=== PATIENT | female | born 1985 | race Caucasian/White ===

== ENCOUNTER 2021-01-12 10:19 | Outpatient (REF) | payer MEDICAID, SELFPAY ==
--- NOTE | 2021-01-12 10:42 | MHC.AU.P13 ---
Hearing Instrument Follow-Up- Binaural Date of Visit: 01/12/21 Right Ear: Tow Truck Operator: Phonak Model: ClickDeliveryEO [id number] Serial Number: [id number] Repair Warranty: Loss and Damage Warranty: Battery Size: 312 Color: BLACK Director Of Sustainability: 2xS Type of Dome: SMALL CLOSED Type of Wax Guard: CERUSTOP Left Ear: Tow Truck Operator: Phonak Model: ClickDeliveryEO V50-312 Serial Number: [id number] RepairWarranty: Loss and Damage Warranty: Battery Size: 312 Color: BLACK Director Of Sustainability: 2xS Type of Dome: SMALL CLOSED Type of Wax Guard: CERUSTOP Follow-Up Summary: BATES Maint - Hearing aids cleaned, wax guards and small closed domes replaced, both batteries replaced, now amplifying clearly. Patient was having trouble inserting and saw AuD. Nicky Bullock reviewed insertion and felt it was due to length of patient's nails that she could not get in. Patient was dispensed 42 batteries Recommendations: Recommendations: Hearing instrument follow-up or maintenance as needed. Signature: Provider: CARLOS A Mirza-HIS
== END 2021-01-12 10:20 | disposition home or self-care (01) ==
LOC: HO.HAP 10:19
PROVIDERS: Visit Provider Family Medicine
DX: Z46.1 Encounter for fitting and adjustment of hearing aid (principal)
CPT/HCPCS: 99499; V5266

== ENCOUNTER → 2022-09-30 13:01 | Outpatient (BNV) | payer MEDICAID, SELFPAY | PROVIDERS: PCP Family Medicine; Visit Provider Internal Medicine Medical Oncology | DX: D72.829 Elevated white blood cell count, unspecified (principal) | CPT/HCPCS: 99204; 99213 ==

== ENCOUNTER → 2022-11-16 09:14 | Outpatient (BNVA) | payer MEDICAID, SELFPAY | PROVIDERS: PCP Family Medicine; Visit Provider Surgery Vascular Surgery | DX: I83.11 Varicose veins of right lower extremity with inflammation (principal) | CPT/HCPCS: 99202 ==

== ENCOUNTER 2022-12-10 08:11 | Outpatient (REF) | payer MEDICAID, SELFPAY ==
--- NOTE | ~2022-12-10 | US_ITS ---
EXAMINATION: US LOWER EXTREMITY VENOUS (REFLUX EXAM), BILATERAL CLINICAL INDICATION: Chronic venous insufficiency with lower extremity varicose veins and inflammation COMPARISON: None. TECHNIQUE: Color flow triplex imaging and compression Doppler was performed to evaluate both the deep and the superficial systems bilaterally. To evaluate the superficial system, the examination was performed in the upright position. Color-flow Doppler ultrasound and compression ultrasound were utilized. In addition, maneuvers were utilized to demonstrate reflux. FINDINGS: 1. DEEP VENOUS ULTRASOUND OF THE RIGHT LOWER EXTREMITY: Common Femoral Vein: Compressible, normal respiratory variation and augmented flow. Femoral Vein: Compressible, normal color flow and augmentation. Popliteal Vein: Compressible, normal augmentation. Deep Reflux: There is no evidence of reflux in the deep system in either the common femoral vein or the popliteal vein. There is no evidence of a Patterson's cyst. 2. SUPERFICIAL ULTRASOUND WITH DOPPLER OF RIGHT LOWER EXTREMITY: GREAT SAPHENOUS VEIN: Saphenofemoral Junction: 0.6 cm; Reflux: 0 ms Proximal Thigh: 0.6 cm; Reflux: 0 ms Mid Thigh: 0.3 cm; Reflux: 0 ms Above Knee: 0.2 cm; Reflux: 0 ms At Knee: 0.2 cm; Reflux: 0 ms Below Knee: 0.2 cm; Reflux: 0 ms Mid Calf: 0.1 cm; Reflux: 0 ms Ankle: 0.2 cm; Reflux: 0 ms DUPLICATED MEDIAL GREAT SAPHENOUS VEIN: Diameter: None Imaged Reflux: NA DUPLICATED LATERAL GREAT SAPHENOUS VEIN: Diameter: None Imaged Reflux: NA SMALL SAPHENOUS VEIN: Proximal: 0.3 cm; Reflux: 0 ms Distal: 0.1 cm; Reflux: 0 ms VEIN OF GIACOMINI: None Imaged. PERFORATORS: Location: None Imaged Size: NA Reflux: NA VARICOSITIES: Location: Proximal thigh Size: 0.3 cm Reflux: None 3. DEEP VENOUS ULTRASOUND OF THE LEFT LOWER EXTREMITY: Common Femoral Vein: Compressible, normal respiratory variation and augmented flow. Femoral Vein: Compressible, normal color flow and augmentation. Popliteal Vein: Compressible, normal augmentation. Deep Reflux: There is no evidence of reflux in the deep system in either the common femoral vein or the popliteal vein. There is no evidence of a Patterson's cyst. 4. SUPERFICIAL ULTRASOUND WITH DOPPLER OF LEFT LOWER EXTREMITY: GREAT SAPHENOUS VEIN: Saphenofemoral Junction: 0.6 cm; Reflux: 0 ms Proximal Thigh: 0.4 cm; Reflux: 0 ms Mid Thigh: 0.3 cm; Reflux: 0 ms Above Knee: 0.4 cm; Reflux: 0 ms At Knee: 0.4 cm; Reflux: 0 ms Below Knee: 0.2 cm; Reflux: 0 ms Mid Calf: 0.2 cm; Reflux: 0 ms Ankle: 0.2 cm; Reflux: 0 ms DUPLICATED MEDIAL GREAT SAPHENOUS VEIN: Diameter: None Imaged Reflux: NA DUPLICATED LATERAL GREAT SAPHENOUS VEIN: Diameter: None Imaged Reflux: NA SMALL SAPHENOUS VEIN: Proximal: 0.3 cm; Reflux: 0 ms Distal: 0.2 cm; Reflux: 0 ms VEIN OF GIACOMINI: None Imaged. PERFORATORS: Location: None significant Size: NA Reflux: NA VARICOSITIES: Location: None significant Size: NA Reflux: NA US/US venous duplex LE BI IMPRESSION: Right: No significant superficial venous insufficiency or reflux. Small varicose veins seen in the right proximal thigh as described above Left: No significant superficial venous insufficiency or reflux.
== END 2022-12-10 08:12 | disposition home or self-care (01) ==
LOC: HO.US 08:11
PROVIDERS: PCP Family Medicine; Visit Provider Surgery Vascular Surgery
DX: I83.11 Varicose veins of right lower extremity with inflammation (principal); I83.893 Varicose veins of bilateral lower extremities with other complications
CPT/HCPCS: 93970

== ENCOUNTER → 2022-12-23 13:31 | Outpatient (BNVA) | payer MEDICAID, SELFPAY | PROVIDERS: PCP Family Medicine; Visit Provider Surgery Vascular Surgery | DX: I83.11 Varicose veins of right lower extremity with inflammation (principal) | CPT/HCPCS: 99212 ==

== ENCOUNTER 2023-06-22 09:45 | Outpatient (REF) | payer MEDICAID, SELFPAY ==
[2023-06-22 11:34] LABS: MANUAL DIFF FLAG NO
[2023-06-22 11:41] LABS: Basophils Absolute Auto 0.1 X10*3/uL (0.0-0.2); Basophils Percent Auto 0.3 % (0-2); Eosinophils Absolute Auto 0.1 X10*3/uL (0.0-0.4); Eosinophils Percent Auto 0.5 % (0-4); Hematocrit 44.6 % (37.0-47.0); Hemoglobin 14.5 g/dl (12.0-16.0); Imm Gran Pct Auto 0.6 % (0.0-0.4); Lymphocytes Absolute Auto 4.1 X10*3/uL (1.2-4.9); Lymphocytes Percent Auto 26.7 % (20-40); Mean Corpuscular HGB Conc 32.5 g/dl (31.0-35.0); Mean Corpuscular Hemoglobin 29.8 pg (27.0-33.0); Mean Corpuscular Volume 91.8 fL (80.0-98.0); Mean Platelet Volume 10.2 fL (9.4-12.3); Monocytes Absolute Auto 0.9 X10*3/uL (0.1-1.2); Monocytes Percent Auto 5.9 % (2-11); Neutrophils Absolute Auto 10.2 x10*3/uL (2.0-8.3); Platelet Count 342 X10*3/uL (160-400); Red Blood Count 4.86 X10*6/uL (4.20-5.50); Red Cell Distribution Width 12.6 % (11.0-16.0); White Blood Count 15.5 X10*3/uL (4.8-10.8)
[2023-06-22 12:13] LABS: Estimated Average Glucose 134 mg/dL; Hemoglobin A1c % 6.3 % (<6.0)
[2023-06-22 12:48] LABS: Ferritin 14 ng/mL (10-122); Iron 206 mcg/dL (30-160); Percent Iron Saturation 69 % (15-50); Total Iron Binding Capacity 299 mcg/dL (228-428); Unsaturated Iron Binding 93 ug/dL
== END 2023-06-22 09:46 | disposition home or self-care (01) ==
LOC: HO.HHCL 09:45
PROVIDERS: Visit Provider Family Medicine
DX: N93.9 Abnormal uterine and vaginal bleeding, unspecified (principal); E11.9 Type 2 diabetes mellitus without complications
CPT/HCPCS: 36415; 82728; 83036; 83540; 85025

== ENCOUNTER 2023-07-04 10:04 | Outpatient (REF) | payer MEDICAID, SELFPAY ==
--- NOTE | ~2023-07-04 | US_ITS ---
EXAMINATION: US PELVIS CLINICAL INFORMATION: Abnormal uterine bleeding LMP 3 weeks ago COMPARISON: Pelvic ultrasound 02/10/2016 TECHNIQUE: Ultrasound of the pelvis is performed using both transabdominal and transvaginal transducers along with Doppler. Transvaginal imaging is performed due to inadequate visualization transabdominally. FINDINGS: Uterus: The uterus is anteverted and measures 8.3 x 3.3 x 4.4 cm. No focal fibroid The endometrium measures 0.7 mL Adnexa: Both ovaries are visualized. There is normal color flow to the adnexa. There is no ovarian torsion. There is no pelvic ascites or fluid collection. Right ovary measures 3.7 x 1.9 x 2.3 cm. Volume 8.5 mL. 1.4 x 1.0 x 1.2 cm corpus luteum is seen in the right ovary. No imaging follow-up of this finding is recommended. Left ovary measures 4.7 x 2.2 x 3.1 cm. Volume 24.4 mL. The left ovary contains multiple follicles, the largest measures 2.5 x 2.1 x 2.1 cm. This likely represents a dominant follicle is considered normal. No follow-up imaging is recommended. US/US pelvic and transvaginal IMPRESSION: 1. Normal uterus. 2. No significant finding within the ovaries.
== END 2023-07-04 10:05 | disposition home or self-care (01) ==
LOC: HO.US 10:04
PROVIDERS: PCP Family Medicine; Visit Provider Family Medicine
DX: N93.9 Abnormal uterine and vaginal bleeding, unspecified (principal)
CPT/HCPCS: 76830; 76856

== ENCOUNTER 2023-08-16 12:29 | Outpatient (AMB) | payer MEDICAID, SELFPAY ==
--- NOTE | 2023-08-16 12:52 | A.OFFVIS_ITS ---
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 States right is worse. Hx of Diabetic. States she has CTS for the last 10 years and worsen in 7-8 years ago. She has tried injection, braces and O.T but temporarily help. States she would like to Current A1C is 7.1. No EMG done. 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 She complains of numbness in the median nerve distribution bilaterally, R>L. She says she was told she had CTS for ~10 years now, and have failed injections, OT, and bracing. She says her symptoms are intermittent, but daily, and worse at night. She still wears her braces prn at night, which are somewhat helpful She is a Diabetic, which is well controlled. Her most recent HgA1c was 6.3% on 06/22/23. She has not done a NCS. 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 [facility] Medical History (Updated 08/16/23 @ 13:17 by Patrick Mayer) Type 2 diabetes mellitus without complication Tobacco dependence Panic disorder without agoraphobia Major depression Posttraumatic stress disorder Morbid obesity Hyperlipidemia Bilateral carpal tunnel syndrome Hearing loss, bilateral Surgical History History of Family History Mother Maternal Aunt Cancer Social History (Updated 08/16/23 @ 13:02 by Brisa Castaneda [facility] Household Members: Children Housing: Apartment Are you a primary companion caregiver to a significant other at home: No Do you presently have visiting nurse or other home services: No Patient Tobacco Use Status: Current everyday Tobacco user Cigarettes Per Day: 8 service: No Current occupational status: employed 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 Review of Systems Const All systems reviewed & are unremarkable except as noted in HPI and below Physical Exam Vital Signs: BMI result Body Mass Index 40.2 Const General: cooperative, healthy appearing and no acute distress Orientation/consciousness: patient oriented x3 HEENT Head: Yes normocephalic and Yes atraumatic Eyes EOM: EOMs intact bilaterally Resp Effort & Inspection: normal respiratory effort and able to speak in complete sentences Cardio Jugular venous distension: no JVD Skin General skin exam: turgor normal Rashes: no rashes Neuro General: patient oriented x3 Extrem Other: Evaluation of Bilateral Upper Extremity: The patient is alert, oriented, and in no acute distress Neuro: Median, Ulnar, Radial nerves motor and sensory intact and sensation is normal to the tips of all digits today in clinic No thenar or intrinsic wasting Good APB muscle belly firing and good finger cross Vascular: Cap refill brisk ROM: She can make a fist and extend all her digits No locking or catching Skin: No lacerations or abrasions. General: No Ecchymosis. No Erythema or evidence of infection. Psych Appearance: grossly normal Affect: normal affect Attitude: cooperative Assessment & Plan Assessment & Plan (1) Bilateral hand numbness: Code(s): R20.0 - Anesthesia of skin (2) Type 2 diabetes mellitus without complication: Code(s): E11.9 - Type 2 diabetes mellitus without complications Plan Assessment & Plan: 1. Bilateral hand numbness, R>L In the median nerve distribution Symptoms intermittent, but daily, worse at night She can continue to wear her wrist braces at night, prn I ordered a NCS to assess for peripheral nerve compression vs cervical radiculopathy She will follow up when completed for review She does have diabetes Scribed for Monik Pinedo MD by Patrick Mayer, medical secretary receptionist, on 08/16/23 at 1:15 PM, EST. Orders: Orders NE nerve conduction velocity Today R20.0 - Anesthesia of skin, R20.2 - Paresthesia of skin Coding Level of Care Code New Pt Level 3 (26610) Diagnoses Bilateral hand numbness R20.0 Type 2 diabetes mellitus without complication E11.9
[2023-08-16 12:53] VITALS: BMI 40.2
== END 2023-08-16 13:38 | disposition home or self-care (01) ==
PROVIDERS: PCP Family Medicine; Visit Provider Orthopaedic Surgery
DX: R20.0 Anesthesia of skin (principal); E11.9 Type 2 diabetes mellitus without complications
CPT/HCPCS: 99203

== ENCOUNTER → 2023-08-16 12:29 | Outpatient (BNVA) | payer MEDICAID, SELFPAY | PROVIDERS: PCP Family Medicine; Visit Provider Orthopaedic Surgery | DX: R20.0 Anesthesia of skin (principal); E11.9 Type 2 diabetes mellitus without complications | CPT/HCPCS: 99202 ==

== ENCOUNTER 2023-09-21 13:19 | Outpatient (REF) | payer MEDICAID, SELFPAY ==
--- NOTE | 2023-09-21 13:24 | EMG_ITS ---
Chief complaint: Hand pain and numbness Reason for referral: Evaluate for Carpal Tunnel Syndrome Referred by: Dr. Pinedo Procedure done: Bilateral upper extremities NCS/EMG Precautions and/or limitations: None The limb temperature was monitored continuously and remained between 32-36 degrees C during the performance of the NCS. Nerve Conduction Studies Anti Sensory Summary Table ?Stim Site NR Onset (ms) Norm Onset (ms) Peak (ms) Norm Peak (ms) O-P Amp (?V) Norm O-P Amp Site1 Site2 Delta-0 (ms) Dist (cm) Antonio (m/s) Norm Antonio (m/s) Left Median Anti Sensory (2nd Digit) Wrist ? 3.3 4.3 <3.6 16.1 >10 Wrist 2nd Digit 3.3 14.0 42 Right Median Anti Sensory (2nd Digit) Wrist ? 3.2 4.0 <3.6 20.6 >10 Wrist 2nd Digit 3.2 14.0 44 Left Ulnar Anti Sensory (5th Digit) Wrist ? 2.4 3.0 <3.7 19.5 >15.0 Wrist 5th Digit 2.4 14.0 58 Right Ulnar Anti Sensory (5th Digit) Wrist ? 2.3 2.8 <3.7 20.2 >15.0 Wrist 5th Digit 2.3 14.0 61 Motor Summary Table ?Stim Site NR Onset (ms) Norm Onset (ms) O-P Amp (mV) Norm O-P Amp iAmp (mV) Amp (1st) (%) Site1 Site2 Delta-0 (ms) Dist (cm) Antonio (m/s) Norm Antonio (m/s) Left Median Motor (Abd Poll Brev) Wrist ? 5.1 <3.9 7.8 >4.5 8.8 100.0 Elbow Wrist 4.0 17.0 43 >45 Elbow ? 9.1 6.9 7.7 88.5 Right Median Motor (Abd Poll Brev) Wrist ? 3.8 <3.9 16.0 >4.5 18.1 100.0 Elbow Wrist 3.7 18.0 49 >45 Elbow ? 7.5 14.0 15.8 87.5 Left Ulnar Motor (Abd Dig Minimi) Wrist ? 2.6 <3.0 8.1 >5 10.7 100.0 B Elbow Wrist 3.2 17.0 53 >45 B Elbow ? 5.8 8.0 10.9 98.8 A Elbow B Elbow 1.4 10.0 71 >45 A Elbow ? 7.2 7.9 10.9 97.5 Right Ulnar Motor (Abd Dig Minimi) Wrist ? 2.7 <3.0 8.0 >5 10.6 100.0 Axilla A Elbow 1.7 10.0 59 A Elbow ? 5.7 9.8 12.7 122.5 Axilla ? 7.4 9.4 12.3 117.5 Comparison Summary Table ?Stim Site NR Peak (ms) Norm Peak (ms) P-T Amp (?V) Site1 Site2 Delta-P (ms) Norm Delta (ms) Right Median/Radial Dig I Comparison (Digit 1 - 10cm) Median ? 3.3 <2.9 19.4 Median Radial 1.2 Radial ? 2.1 <2.8 14.5 EMG ?Side Muscle Nerve Root Ins Act Fibs Psw Amp Dur Poly Recrt Int Pat Comment Right 1stDorInt Ulnar C8-T1 Nml Nml Nml Nml Nml 0 Nml Complete Right FlexCarRad Median C6-7 Nml Nml Nml Nml Nml 0 Nml Complete Right Biceps Musculocut C5-6 Nml Nml Nml Nml Nml 0 Nml Complete Right Triceps Radial C6-7-8 Nml Nml Nml Nml Nml 0 Nml Complete Right Deltoid Axillary C5-6 Nml Nml Nml Nml Nml 0 Nml Complete Left 1stDorInt Ulnar C8-T1 Nml Nml Nml Nml Nml 0 Nml Complete Left FlexCarRad Median C6-7 Nml Nml Nml Nml Nml 0 Nml Complete Left Biceps Musculocut C5-6 Nml Nml Nml Nml Nml 0 Nml Complete Left Triceps Radial C6-7-8 Nml Nml Nml Nml Nml 0 Nml Complete Left Deltoid Axillary C5-6 Nml Nml Nml Nml Nml 0 Nml Complete FINDINGS: Left median motor nerve showed prolonged distal latency, normal amplitude and slow conduction velocity. Bilateral median sensory nerves showed prolonged peak latency. Significant interlatency difference seen on right median versus radial sensory nerves. All other nerves tested were within normal. Concentric needle EMG was performed in selected muscles of the bilateral upper extremities. Study did not reveal signs of electric abnormalities as shown in the table below. IMPRESSION: 1. This is an abnormal study. 2. There is electrodiagnostic evidence for left moderate-severe and right mild median neuropathy at the wrist, consistent with carpal tunnel syndrome. 3. There is no electrodiagnostic evidence for ulnar neuropathy, brachial plexopathy, or cervical radiculopathy. Thank you for your kind referral. Joelle Martinez MD, GABRIEL Board Certified, [place] Board [employer] and Rehabilitation (ABPMR) Board Certified, [place] Board of Electrodiagnostic Medicine (ABEM) CODIN 45703 x 2 MTDD
== END 2023-09-21 13:20 | disposition home or self-care (01) ==
LOC: HO.NEURO 13:19
PROVIDERS: PCP Family Medicine; Visit Provider Orthopaedic Surgery
DX: R20.0 Anesthesia of skin (principal); R20.2 Paresthesia of skin
CPT/HCPCS: 95886; 95911

== ENCOUNTER → 2023-09-21 13:24 | Outpatient (BNV) | payer MEDICAID, SELFPAY | PROVIDERS: PCP Family Medicine; Visit Provider Physical Medicine & Rehabilitation | DX: G56.13 Other lesions of median nerve, bilateral upper limbs (principal); G56.03 Carpal tunnel syndrome, bilateral upper limbs | CPT/HCPCS: 95886; 95911 ==

== ENCOUNTER 2023-09-29 09:22 | Outpatient (REF) | payer MEDICAID, SELFPAY ==
[2023-09-29 11:39] LABS: MANUAL DIFF FLAG NO
[2023-09-29 12:06] LABS: Basophils Absolute Auto 0.1 X10*3/uL (0.0-0.2); Basophils Percent Auto 0.4 % (0-2); Eosinophils Absolute Auto 0.1 X10*3/uL (0.0-0.4); Eosinophils Percent Auto 0.9 % (0-4); Hemoglobin 14.4 g/dl (12.0-16.0); Imm Gran Abs Auto 0.09 X10*3/uL (0.00-0.03); Imm Gran Pct Auto 0.6 % (0.0-0.4); Lymphocytes Absolute Auto 4.7 X10*3/uL (1.2-4.9); Lymphocytes Percent Auto 29.2 % (20-40); Mean Corpuscular HGB Conc 32.7 g/dl (31.0-35.0); Mean Corpuscular Volume 91.7 fL (80.0-98.0); Mean Platelet Volume 10.4 fL (9.4-12.3); Monocytes Percent Auto 6.4 % (2-11); Neutrophils Percent Auto 62.5 % (45-73); Platelet Count 318 X10*3/uL (160-400)
[2023-09-29 12:27] LABS: Alanine Aminotransferase 20 U/L (0-31); Albumin Level 4.1 g/dL (3.5-5.0); Alkaline Phosphatase 89 U/L (39-117); Anion Gap 16 (12-20); Aspartate Amino Transferase 14 U/L (5-31); Bilirubin Direct 0.1 mg/dL (0.0-0.5); Bilirubin Total 0.3 mg/dL (0.0-1.0); Blood Urea Nitrogen 9 mg/dL (9-16); Calcium 9.5 mg/dL (8.4-10.2); Carbon Dioxide 21 mmol/L (22-29); Chloride 103 mmol/L (96-108); Cholesterol 216 mg/dL (<200); Estimated Glomerular Filt Rate > 60; Glucose Random 227 mg/dL (60-115); HDL Cholesterol 51 mg/dL (>40); LDL Cholesterol Calculated 134 mg/dL (<100); Sodium 136 mmol/L (135-145); Total Protein 7.8 g/dL (6.5-8.0); Triglycerides 158 mg/dL (<150)
[2023-09-29 12:31] LABS: Free T4 (Free Thyroxine) 1.03 ng/dL (0.71-1.85); Thyroid Stimulating Hormone 1.85 uIU/mL (0.32-4.0); Vitamin D 25-OH Total 70.9 ng/mL (>30)
[2023-09-29 12:32] LABS: Creatinine Urine 102.77 mg/dL; Microalbum/Creatinine Ratio Ur 58.3 ug/mg cr (<30)
[2023-09-29 12:34] LABS: Vitamin B12 546 pg/mL (200-900)
[2023-09-29 13:45] LABS: CT PCR NOT DETECTED (Not Detect.); NG PCR NOT DETECTED (Not Detect.)
[2023-09-29 14:12] LABS: Syphilis Screen Nonreactive (Nonreactive)
[2023-09-30 07:41] LABS: HIV AB/AG Nonreactive (Nonreactive); HIV Num 1 0.04 S/CO (0.00-0.99); ~Hepatitis C Antibody Nonreactive (Nonreactive)
== END 2023-09-29 09:23 | disposition home or self-care (01) ==
LOC: HO.HHCLNP 09:22
PROVIDERS: Visit Provider Family Medicine
DX: Z11.4 Encounter for screening for human immunodeficiency virus [HIV] (principal); Z11.3 Encounter for screening for infections with a predominantly sexual mode of transmission; N93.9 Abnormal uterine and vaginal bleeding, unspecified; E11.9 Type 2 diabetes mellitus without complications
CPT/HCPCS: 0353U; 80048; 80061; 80076; 82043; 82306; 82570; 82607; 82746; 84439; 84443; 85025; 86780; 86803; 87389

== ENCOUNTER 2024-02-29 07:54 | Outpatient (AMB) | payer MEDICAID, SELFPAY ==
--- NOTE | 2024-02-29 08:40 | MHC.OFFVIS ---
Vital Signs 02/29/24 08:54 Height 5 ft 2 in Weight 227 lb BMI 41.5 Intake Visit Reasons: OV- EMG Review B/L hands Intake Note: Apolinar 38 yr old female presents today for her EMG Review of B/L hands. States she would like to discuss surgery. States she is interested in surgery however her A1C is currently a 10.0. States she has had a bad year with her father passing and having to move to another location. States she saw her PCP recently but was unsure if dosage were changed. 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 She complains of numbness and tingling in both hands left worse than right. Her symptoms are intermittent but daily. They wake her up at night and are also bad when she is gripping the steering wheel. Unfortunately, she has had multiple stressors this year and stopped taking her diabetes medications. Her most recent hemoglobin A1c is 10.0 [facility] Medical History (Updated 02/29/24 @ 09:13 by Monik Pinedo MD) Type 2 diabetes mellitus without complication Tobacco dependence Panic disorder without agoraphobia Major depression Posttraumatic stress disorder Morbid obesity Hyperlipidemia Bilateral carpal tunnel syndrome Hearing loss, bilateral Surgical History History of Family History Mother Maternal Aunt Cancer Social History Household Members: Children Housing: Apartment Are you a primary care management specialist to a significant other at home: No Do you presently have visiting nurse or other home services: No Patient Tobacco Use Status: Current everyday Tobacco user Cigarettes Per Day: 8 service: No Current occupational status: employed 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 Physical Exam Vital Signs: BMI result Body Mass Index 41.5 Const General: cooperative, healthy appearing and no acute distress Orientation/consciousness: oriented to person and oriented to place HEENT Head: Yes normocephalic and Yes atraumatic Eyes EOM: EOMs intact bilaterally Resp Effort & Inspection: normal respiratory effort and able to speak in complete sentences Cardio Jugular venous distension: no JVD Skin General skin exam: turgor normal Rashes: no rashes Neuro General: oriented to person and oriented to place Extrem Other: Evaluation of bilateral Upper Extremity: Neuro: Median, ulnar, radial nerves motor and sensory intact. No intrinsic or thenar wasting Good APB muscle belly firing and finger cross Vascular: Cap refill brisk. ROM: Can bring fingers closed to a fist and back out to full or nearly full extension. Can oppose thumb to fingertips Smooth and painless wrist ROM Skin: No lacerations or abrasions. General: No eccymosis. No erythema or evidence of infection. EMG nerve conduction study: EMG nerve conduction study of the bilateral upper extremities, obtained on 09/21/2023: IMPRESSION: 1. This is an abnormal study. 2. There is electrodiagnostic evidence for left moderate-severe and right mild median neuropathy at the wrist, consistent with carpal tunnel syndrome. 3. There is no electrodiagnostic evidence for ulnar neuropathy, brachial plexopathy, or cervical radiculopathy. Signed By: <Electronically signed by Joelle Bryant> 09/21/23 1610 Psych Appearance: grossly normal Affect: normal affect Attitude: cooperative Assessment & Plan Assessment & Plan (1) Carpal tunnel syndrome of left wrist: Code(s): G56.02 - Carpal tunnel syndrome, left upper limb Category: Medical (2) Carpal tunnel syndrome of right wrist: Code(s): G56.01 - Carpal tunnel syndrome, right upper limb Category: Medical Plan Assessment and plan: 1. Left carpal tunnel syndrome, moderate-severe Symptoms intermittent but daily 2. Right carpal tunnel syndrome, mild Symptoms intermittent but daily Symptoms on the left are worse than the right I educated the patient about this condition We discussed operative and non operative treatment options. Unfortunately the patient has a hemoglobin A1c of 10.0. I educated her about the importance of getting back on her diabetes medications and managing her diabetes. She has had some recent stressors including the of her father. I have asked her to make another appointment in 3-4 months with a new hemoglobin A1c. Hopefully we can talk again about treatment plans and move forward. Coding Level of Care Code New Pt Level 3 (19766) Diagnoses Carpal tunnel syndrome of left wrist G56.02 Carpal tunnel syndrome of right wrist G56.01
[2024-02-29 08:54] VITALS: BMI 41.5
== END 2024-02-29 09:10 | disposition home or self-care (01) ==
PROVIDERS: PCP Family Medicine; Visit Provider Orthopaedic Surgery
DX: G56.03 Carpal tunnel syndrome, bilateral upper limbs (principal)
CPT/HCPCS: 99213

== ENCOUNTER → 2024-02-29 07:54 | Outpatient (BNVA) | payer MEDICAID, SELFPAY | PROVIDERS: PCP Family Medicine; Visit Provider Orthopaedic Surgery | DX: G56.03 Carpal tunnel syndrome, bilateral upper limbs (principal) | CPT/HCPCS: 99212 ==

== ENCOUNTER 2024-04-30 09:32 | Outpatient (REF) | payer MEDICAID, SELFPAY ==
[2024-04-30 11:56] LABS: Alanine Aminotransferase 32 U/L (0-31); Alkaline Phosphatase 78 U/L (39-117); Aspartate Amino Transferase 21 U/L (5-31); Bilirubin Direct < 0.2 mg/dL (0.0-0.5); Bilirubin Total 0.2 mg/dL (0.0-1.0); Cholesterol 150 mg/dL (<200); HDL Cholesterol 48 mg/dL (>40); LDL Cholesterol Calculated 85 mg/dL (<100); Triglycerides 89 mg/dL (<150)
== END 2024-04-30 09:33 | disposition home or self-care (01) ==
LOC: HO.HHCL 09:32
PROVIDERS: Visit Provider Family Medicine
DX: E11.9 Type 2 diabetes mellitus without complications (principal); E78.49 Other hyperlipidemia
CPT/HCPCS: 36415; 80061; 80076

== ENCOUNTER 2024-05-09 12:12 | Outpatient (REF) | payer MEDICAID, SELFPAY | END 2024-05-09 12:13 | disposition home or self-care (01) | LOC: HO.HHCLNP 12:12 | PROVIDERS: Visit Provider Family Medicine | DX: R35.0 Frequency of micturition (principal) | CPT/HCPCS: 87086 ==

== ENCOUNTER 2024-05-30 09:15 | Outpatient (AMB) | payer MEDICAID, SELFPAY ==
--- NOTE | 2024-05-30 09:25 | MHC.OFFVIS ---
Vital Signs 05/30/24 09:28 Height 5 ft 2 in Weight 227 lb BMI 41.5 Handedness Right Intake Visit Reasons: OV - B/L hand numbness F/U Intake Note: Apolinar is a 39 year old right hand dominant female who presents today for a follow up evaluation of bilateral hand numbness. Left is worse than her right. Patient reports his most recent A1C done on 04/30/24 and was a 7.7. Labs have been scanned into her chart on 05/01/24. Her symptoms have not improved, her pain, numbness, and tingling continue in her left hand and radiates up the left arm. She has been trying Tylenol and ibuprofen for but finds no relief. She also has hx of injections in her B/L wrist and expresses these also did not help. She is hoping to discuss surgery today. Patient requesting work note for today's visit. Allergies latex [Latex] Allergy (Mild, Unverified 05/30/24 09:33) HIVES Do you need a note to return to daycare/school/sports/work: Yes Return to daycare/school/sports/work/other note: work HPI HPI OV - B/L hand numbness F/U: Details: Patient is a 39-year-old female who presents for re-evaluation of carpal tunnel syndrome of bilateral wrists. Patient reports that symptoms are intermittent, but daily, worse at night. At previous visit, patient expressed interest in surgical intervention, but last A1c was prohibitive to scheduling surgery. Today, the patient reports that she had an A1c drawn last week, and then it was 7.7, below the upper limit for surgery. Patient reports that she would like to be signed up for surgery at this time, and would like to start with the left side as she finds this is more bothersome. [facility] Medical History Type 2 diabetes mellitus without complication Tobacco dependence Panic disorder without agoraphobia Major depression Posttraumatic stress disorder Morbid obesity Hyperlipidemia Bilateral carpal tunnel syndrome Hearing loss, bilateral Surgical History History of Family History Mother Maternal Aunt Cancer Social History Household Members: Children Housing: Apartment Are you a primary healthcare interpreter to a significant other at home: No Do you presently have visiting nurse or other home services: No Patient Tobacco Use Status: Current everyday Tobacco user Cigarettes Per Day: 8 service: No Current occupational status: employed 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 Review of Systems Const All systems reviewed & are unremarkable except as noted in HPI and below Physical Exam Vital Signs: BMI result Body Mass Index 41.5 Const General: cooperative, healthy appearing and no acute distress Orientation/consciousness: oriented to person and oriented to place HEENT Head: Yes normocephalic and Yes atraumatic Eyes EOM: EOMs intact bilaterally Resp Effort & Inspection: normal respiratory effort and able to speak in complete sentences Cardio Jugular venous distension: no JVD Skin General skin exam: turgor normal Rashes: no rashes Neuro General: oriented to person and oriented to place Extrem Other: Evaluation of bilateral Upper Extremity: Neuro: Median, ulnar, radial nerves motor and sensory intact. No intrinsic or thenar wasting Good APB muscle belly firing and finger cross Vascular: Cap refill brisk. ROM: Can bring fingers closed to a fist and back out to full or nearly full extension. Can oppose thumb to fingertips Smooth and painless wrist ROM Skin: No lacerations or abrasions. General: No eccymosis. No erythema or evidence of infection. Psych Appearance: grossly normal Affect: normal affect Attitude: cooperative Results Reviewed Results Reviewed: IMPRESSION: 1. This is an abnormal study. 2. There is electrodiagnostic evidence for left moderate-severe and right mild median neuropathy at the wrist, consistent with carpal tunnel syndrome. 3. There is no electrodiagnostic evidence for ulnar neuropathy, brachial plexopathy, or cervical radiculopathy. Assessment & Plan Assessment & Plan (1) Carpal tunnel syndrome of right wrist: Code(s): G56.01 - Carpal tunnel syndrome, right upper limb Category: Medical (2) Carpal tunnel syndrome of left wrist: Code(s): G56.02 - Carpal tunnel syndrome, left upper limb Category: Medical Plan 1. Carpal tunnel syndrome, left Symptoms intermittent, but daily, worse at night I educated the patient about the condition. I discussed both operative and nonoperative treatment options. The patient would like to proceed with surgery. [] The risks and benefits of operative treatment were discussed with the patient and the patient wishes to proceed with surgery. These risks include, but are not limited to, risk of damage to blood vessels, nerves, tendons, infection, recurrence, incomplete relief of preoperative symptoms, persistent pain, possible need for further surgery, and the risks associated with regional blocks and/or anesthesia. Plan is to take the patient to the operating room at some point in the next few weeks for the following procedures: 1. Left carpal tunnel release under local anesthesia All of the preoperative paperwork including the consent was discussed today. All of the patient's questions were answered in the clinic today. The patient understands that they will be in contact with our flight crew scheduler to discuss scheduling their procedure. Patient inquires if she will be able to work as a recycling collections driver in the immediate postoperative period. I informed the patient that while she can work in the immediate postoperative time, she will need to adhere to a 2 lb weight limit in her right hand. Patient inquires if we will be able to give her a light duty note stating this to her job, and I informed her that this is something that we can absolutely do for her. Patient reports that she does have diabetes, with last A1c being drawn in the last couple of weeks at 7.7 Patient denies blood thinners, asthma, heart issues, lung issues, kidney issues, or current smoking. 2. Carpal tunnel syndrome, right Symptoms intermittent, not necessarily daily, worse at night Patient would like to explore surgical treatment of the left side prior to any treatment on the right Patient is informed that we can sign in the right side up for surgery if she is recovering well from her left-sided surgery at postoperative visit Patient is amenable to this plan Patient will follow-up for preop visit prior to surgery, sooner with any acute concerns Coding Level of Care Code Est Pt Level 4 (13704) Diagnoses Carpal tunnel syndrome of right wrist G56.01 Carpal tunnel syndrome of left wrist G56.02
[2024-05-30 09:28] VITALS: BMI 41.5
== END 2024-05-30 10:16 | disposition home or self-care (01) ==
PROVIDERS: PCP Family Medicine; Visit Provider Orthopaedic Surgery
DX: G56.03 Carpal tunnel syndrome, bilateral upper limbs (principal)
CPT/HCPCS: 99214

== ENCOUNTER → 2024-05-30 09:15 | Outpatient (BNVA) | payer MEDICAID, SELFPAY | PROVIDERS: PCP Family Medicine; Visit Provider Orthopaedic Surgery | DX: G56.03 Carpal tunnel syndrome, bilateral upper limbs (principal) | CPT/HCPCS: 99212 ==

== ENCOUNTER 2024-07-19 09:41 | Day surgery (SDC) | payer MEDICAID, SELFPAY ==
--- NOTE | 2024-07-19 09:31 | P.OP_ITS ---
Operative Note Operative Note Date of Service: 07/19/24 Narrative: Preop diagnosis: 1. Left Carpal tunnel syndrome Postop diagnosis: same Procedure: 1. Left Carpal tunnel release Surgeon: Monik Pinedo MD Family Welfare Social Work Professor: Rip SMITH Anesthesia: local block using 1% lidocaine with epinephrine Findings: Thickened transverse carpal ligament. EBL: Less than 5 mL Specimens: None Complications: None Disposition: Brought to recovery room in stable condition Plan: Follow-up for 10-14 days for wound check and suture removal Indications: The patient is 39 years old, with left carpal tunnel syndrome that has been unresponsive to nonoperative management. The risks and benefits of operative treatment including but not limited to risk of damage to blood vessels, nerves, tendons, infection, persistent pain, persistent symptoms, or possible need for additional surgery were discussed with the patient and the patient wishes to proceed with surgery. Procedure: Once consent was obtained a local block was performed using a combination of 1% lidocaine with epinephrine. The patient was then brought back to the operating suite and placed on the operative table in supine position. The left upper extremity was prepped and draped in a standard surgical fashion. Once assured that we had a good block, a 2.0 cm longitudinal incision was made centered over the carpal tunnel. The incision was made through the skin to the subcutaneous tissues using a #15 blade. Dissection was made down to the level of the transverse carpal ligament with care being taken to protect the palmar cutaneous nerve. Once the transverse carpal ligament was clearly visualized, a longitudinal incision was made in the transverse carpal ligament 1st using a #15 blade, then using tenotomy scissors under direct visualization. Care was taken to look for and protect the motor branch of the median nerve when seen in this area. Once satisfied with our carpal tunnel release the wound was copiously irrigated with normal saline and hemostasis was obtained with a brief period of local pressure. The skin edges were reapproximated with some 5.0 nylon suture material and a sterile dressing was applied. The patient appears to have tolerated the procedure well and with no complications. All digits were well vascularized at the conclusion of the case.
[2024-07-19 09:56] VITALS: BP 123/96; PULSE 84; RESP 20; TEMP 36.1; O2SAT 98; BMI 41.5
--- NOTE | 2024-07-19 12:05 | MHC.SHP ---
Pre-Procedural Eval Section A - 24 Hr Update-Section A only Date of Service: 07/19/24 The patient is an INPATIENT: No Changes since office visit: No Cold of Flu in the past 2 weeks, No New Medical Problems, No Changes in Medication and No Patient answered all questions The patient has been examined within 24 hours of the surgical procedure. The History & Physical has been completed within 30 days and I have reviewed it.: Yes Section B - Complete if H&P > 30 days Chief Complaint: Carpal tunnel syndrome, left upper limb Allergies: Allergies Allergy/AdvReac Type Severity Reaction Status Date / Time latex [Latex] Allergy Mild HIVES Unverified 05/30/24 09:33 Plan Diagnosis/Plan: Unchanged I have reviewed the history and physical and performed a pertinent physical examination on my patient. No changes have occurred unless specified. Time Spent With Patient Time: Total time managing care of this patient today ____ minutes.
[2024-07-19 14:53] VITALS: BP 121/77; PULSE 97; RESP 16; O2SAT 98
== END 2024-07-19 14:54 | disposition home or self-care (01) ==
PROVIDERS: PCP Family Medicine; Visit Provider Orthopaedic Surgery
PROC: (CPT 64721; principal; 2024-07-19 13:00)
DX: G56.02 Carpal tunnel syndrome, left upper limb (principal); R20.0 Anesthesia of skin; R20.2 Paresthesia of skin; E11.9 Type 2 diabetes mellitus without complications; E78.5 Hyperlipidemia, unspecified; H91.93 Unspecified hearing loss, bilateral; E66.01 Morbid (severe) obesity due to excess calories; Z68.41 Body mass index [BMI] 40.0-44.9, adult; F43.10 Post-traumatic stress disorder, unspecified; F41.0 Panic disorder [episodic paroxysmal anxiety]; Z91.040 Latex allergy status; F17.210 Nicotine dependence, cigarettes, uncomplicated
CPT/HCPCS: 64721; J0171; J2003

== ENCOUNTER → 2024-07-19 09:41 | Outpatient (BNV) | payer MEDICAID, SELFPAY | PROVIDERS: PCP Family Medicine; Visit Provider Orthopaedic Surgery | DX: G56.02 Carpal tunnel syndrome, left upper limb (principal) | CPT/HCPCS: 64721 ==

== ENCOUNTER 2024-08-01 15:11 | Outpatient (AMB) | payer MEDICAID, SELFPAY ==
--- NOTE | 2024-08-01 15:21 | MHC.OFFVIS ---
Intake Visit Reasons: PO LT CTR 07/19/24 AR Intake Note: Apolinar is a 39 year old right hand dominant female who presents today post operatively S/P Left carpal tunnel release DOS: 07/19/24 w/ Dr Pinedo. Pt states she is overall feeling well. Allergies latex [Latex] Allergy (Mild, Unverified 08/01/24 15:22) HIVES HPI HPI PO LT CTR 07/19/24 AR: Details: Patient is a 39-year-old female who presents for postoperative evaluation status post left carpal tunnel release, DOS 07/19/2024. Today, the patient reports that she is feeling better than she was prior to surgery, but admits that she has been experiencing some pain about the incision site and stiffness in her left hand. The patient reports that she does not have a high pain tolerance, and states that she has been somewhat babying in the left hand. Patient reports that this tenderness is primarily located on the radial aspect of the incision site. Patient denies any redness, swelling, or discharge around the incision site. Denies any numbness or tingling in the left hand at the time. No other acute complaints or concerns at this time. [facility] Medical History Type 2 diabetes mellitus without complication Tobacco dependence Panic disorder without agoraphobia Major depression Posttraumatic stress disorder Morbid obesity Hyperlipidemia Bilateral carpal tunnel syndrome Hearing loss, bilateral Surgical History History of Family History Mother Maternal Aunt Cancer Social History Household Members: Children Housing: Apartment Are you a primary eye care professional to a significant other at home: No Do you presently have visiting nurse or other home services: No Patient Tobacco Use Status: Current everyday Tobacco user Cigarettes Per Day: 8 service: No Current occupational status: employed 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 Good APB muscle firing and good finger cross. Vascular: Capillary refill brisk. Pain: Patient reports significant tenderness to light touch about the incision site, worse in the radial side ROM: With encouragement, patient is able to make a closed fist with her left hand, but reports significant discomfort when doing so Skin: Well approximated and well healing incision site noted on the volar aspect of the left wrist General: No ecchymosis. No erythema or evidence of infection. Assessment & Plan Assessment & Plan (1) Stiffness of left wrist joint: Code(s): M25.632 - Stiffness of left wrist, not elsewhere classified Category: Medical (2) Carpal tunnel syndrome of left wrist: Code(s): G56.02 - Carpal tunnel syndrome, left upper limb Category: Medical (3) Carpal tunnel syndrome of right wrist: Code(s): G56.01 - Carpal tunnel syndrome, right upper limb Category: Medical Plan 1. Carpal tunnel syndrome left, status post carpal tunnel release DOS 07/19/2024 2. Postoperative stiffness of the left hand Patient appears to be recovering moderately well postoperatively Patient is educated about the typical recovery course At this time, due to hypersensitivity reaction of the incision site and stiffness of the left hand, patient was referred to occupational hand therapy for desensitization and range of motion/strengthening of the left hand Patient is also educated on the importance of massaging at around the incision site to desensitize the area to hypersensitivity Surgical site appears to be healing well, no concern for infection at this time Patient is educated on the importance of activity modification, and conservative pain management measures, such as rest, ice, elevation, and [id number] pain medication as needed 2. Carpal tunnel syndrome, right Symptoms intermittent, daily, worse at night At this time, patient should achieve full recovery from the left side prior to any surgical intervention on the right Patient understands this and is amenable to this plan Patient will follow-up after she feels she has achieved adequate recovery on the left side to discuss surgical intervention on the right, sooner with any other acute concerns Orders: Orders OT Evaluation and Treatment 08/01/24 G56.02 - Carpal tunnel syndrome, left upper limb, M25.632 - Stiffness of left wrist, not elsewhere classified Coding Level of Care Code Global (84656) Diagnoses Stiffness of left wrist joint M25.632 Carpal tunnel syndrome of left wrist G56.02 Carpal tunnel syndrome of right wrist G56.01
== END 2024-08-01 15:39 | disposition home or self-care (01) ==
PROVIDERS: PCP Family Medicine
DX: G56.03 Carpal tunnel syndrome, bilateral upper limbs (principal)
CPT/HCPCS: 99024

== ENCOUNTER → 2024-08-01 15:11 | Outpatient (BNVA) | payer MEDICAID, SELFPAY | PROVIDERS: PCP Family Medicine | DX: M25.632 Stiffness of left wrist, not elsewhere classified (principal); G56.01 Carpal tunnel syndrome, right upper limb; Z48.811 Encounter for surgical aftercare following surgery on the nervous system; Z98.890 Other specified postprocedural states | CPT/HCPCS: 99212 ==

== ENCOUNTER 2024-08-27 08:48 | Outpatient (AMB) | payer MEDICAID, SELFPAY ==
--- NOTE | 2024-08-27 08:50 | A.OFFVIS_ITS ---
Vital Signs 08/27/24 08:54 Height 5 ft 2 in Weight 197 lb BMI 36.0 Handedness Right Intake Visit Reasons: PO LT CTR 07/19/24 AR Intake Note: Apolinar is a 39 year old right hand dominant female who presents today post operatively S/P Left carpal tunnel release DOS: 07/19/24 w/ Dr Pinedo. Patient reports she started OT and will be going twice a week. OT told her that her symptoms may be from her msucles and scar tissues. She expresses when its cold she feels numbness and tingling. She reports the numbness and tingling being in her left 5th digit. Allergies latex [Latex] Allergy (Mild, Unverified 08/27/24 08:54) HIVES HPI HPI PO LT CTR 07/19/24 AR: Details: Patient is a 39-year-old female who presents for postoperative [id number] check status post left carpal tunnel release, DOS 07/19/[address] Pinedo. Today, the patient reports that her pain and stiffness in her left hand have improved drastically since starting occupational therapy, and she is now able to make a closed fist in the left hand without difficulty. Of note, the patient does state that she has noticed that she has begun to experience some intermittent numbness and tingling in the left small finger, although this only occurs when she is cold. Patient reports that she is interested in getting a right carpal tunnel release performed, but states it is would have to be after the holiday season. No other acute complaints or concerns at this time. [facility] Medical History Type 2 diabetes mellitus without complication Tobacco dependence Panic disorder without agoraphobia Major depression Posttraumatic stress disorder Morbid obesity Hyperlipidemia Bilateral carpal tunnel syndrome Hearing loss, bilateral Surgical History History of Family History Mother Maternal Aunt Cancer Social History Household Members: Children Housing: Apartment Are you a primary patient care provider to a significant other at home: No Do you presently have visiting nurse or other home services: No Patient Tobacco Use Status: Current everyday Tobacco user Cigarettes Per Day: 8 service: No Current occupational status: employed 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 Good APB muscle firing and good finger cross. Vascular: Capillary refill brisk. Pain: No tenderness to palpation around the incision site of the left wrist ROM: Patient is able to make a closed fist and extend all digits of the left hand fully and without difficulty Skin: Well approximated and well healing incision site noted on the volar aspect of the left wrist General: No ecchymosis. No erythema or evidence of infection. Right hand exam Neuro: Normal sensation of the tips of all digits of the right hand at this time No thenar or intrinsic wasting. Good APB muscle firing and good finger cross. Vascular: Capillary refill brisk. ROM: Patient can make a fist and extend all their digits. Skin: No lacerations or abrasions noted. General: No ecchymosis. No erythema or evidence of infection. Results Reviewed Results Reviewed: EMG performed on 09/21/2023 IMPRESSION: 1. This is an abnormal study. 2. There is electrodiagnostic evidence for left moderate-severe and right mild median neuropathy at the wrist, consistent with carpal tunnel syndrome. 3. There is no electrodiagnostic evidence for ulnar neuropathy, brachial plexopathy, or cervical radiculopathy. Joelle Martinez MD, GABRIEL Assessment & Plan Assessment & Plan (1) Carpal tunnel syndrome of right wrist: Code(s): G56.01 - Carpal tunnel syndrome, right upper limb Category: Medical (2) Carpal tunnel syndrome of left wrist: Code(s): G56.02 - Carpal tunnel syndrome, left upper limb Category: Medical (3) Type 2 diabetes mellitus without complication: Code(s): E11.9 - Type 2 diabetes mellitus without complications Category: Medical Plan 1. Carpal tunnel syndrome, left, status post carpal tunnel release with associated postoperative stiffness DOS 07/19/2024 Patient appears to be recovering well postoperatively Patient is educated about the typical recovery course At this time, patient is informed that she appears to have recovered well from her postoperative stiffness and incision site pain, so she will not require any acute follow-up with us for her left hand Patient understands this is amenable to this 2. Carpal tunnel syndrome, right Symptoms intermittent, daily, worse at night I educated the patient about the condition. I discussed both operative and nonoperative treatment options. The patient would like to proceed with surgery. The risks and benefits of operative treatment were discussed with the patient and the patient wishes to proceed with surgery. These risks include, but are not limited to, risk of damage to blood vessels, nerves, tendons, infection, recurrence, incomplete relief of preoperative symptoms, persistent pain, possible need for further surgery, and the risks associated with regional blocks and/or anesthesia. Plan is to take the patient to the operating room at some point in the next few weeks for the following procedures: 1. Right carpal tunnel release under local anesthesia All of the preoperative paperwork including the consent was discussed today. All of the patient's questions were answered in the clinic today. The patient understands that they will be in contact with our surgical services manager to discuss scheduling their procedure. Patient reports diabetes, last A1c 6 Denies blood thinners, asthma, heart issues, lung issues, kidney issues, or current smoking. Coding Level of Care Code Est Pt Level 4 (51601) Diagnoses Carpal tunnel syndrome of right wrist G56.01 Carpal tunnel syndrome of left wrist G56.02 Type 2 diabetes mellitus without complication E11.9
[2024-08-27 08:54] VITALS: BMI 36.0
== END 2024-08-27 09:05 | disposition home or self-care (01) ==
PROVIDERS: PCP Family Medicine
DX: G56.03 Carpal tunnel syndrome, bilateral upper limbs (principal); E11.9 Type 2 diabetes mellitus without complications
CPT/HCPCS: 99214

== ENCOUNTER → 2024-08-27 08:48 | Outpatient (BNVA) | payer MEDICAID, SELFPAY | PROVIDERS: PCP Family Medicine | DX: G56.03 Carpal tunnel syndrome, bilateral upper limbs (principal); E11.9 Type 2 diabetes mellitus without complications | CPT/HCPCS: 99212 ==

== ENCOUNTER 2024-11-05 08:01 | Day surgery (SDC) | payer MEDICAID, SELFPAY ==
[2024-11-05 08:59] VITALS: BMI 36.0
[2024-11-05 09:07] VITALS: BP 133/76; PULSE 88; RESP 16; TEMP 36.5; O2SAT 100
--- NOTE | 2024-11-05 09:27 | MHC.SHP ---
Pre-Procedural Eval Section A - 24 Hr Update-Section A only Date of Service: 11/05/24 The patient is an INPATIENT: No Changes since office visit: No Cold of Flu in the past 2 weeks, No New Medical Problems, No Changes in Medication and No Patient answered all questions The patient has been examined within 24 hours of the surgical procedure. The History & Physical has been completed within 30 days and I have reviewed it.: Yes Section B - Complete if H&P > 30 days Chief Complaint: Carpal tunnel syndrome, right upper limb Allergies: Allergies Allergy/AdvReac Type Severity Reaction Status Date / Time latex [Latex] Allergy Mild HIVES Unverified 08/27/24 08:54 Plan Diagnosis/Plan: Unchanged I have reviewed the history and physical and performed a pertinent physical examination on my patient. No changes have occurred unless specified. Time Spent With Patient Time: Total time managing care of this patient today ____ minutes.
--- NOTE | 2024-11-05 09:28 | W.PM.OPN ---
Operative Note Operative Note Date of Service: 11/05/24 Narrative: Preop diagnosis: 1. Right Carpal tunnel syndrome Postop diagnosis: same Procedure: 1. Right Carpal tunnel release Surgeon: Monik Pinedo MD Art [employer] Certified Supervisor: None Anesthesia: local block using 1% lidocaine with epinephrine Findings: Thickened transverse carpal ligament. EBL: Less than 5 mL Specimens: None Complications: None Disposition: Brought to recovery room in stable condition Plan: Follow-up for 10-14 days for wound check and suture removal Indications: The patient is 39 years old, with right carpal tunnel syndrome that has been unresponsive to nonoperative management. The risks and benefits of operative treatment including but not limited to risk of damage to blood vessels, nerves, tendons, infection, persistent pain, persistent symptoms, or possible need for additional surgery were discussed with the patient and the patient wishes to proceed with surgery. Procedure: Once consent was obtained a local block was performed using a combination of 1% lidocaine with epinephrine. The patient was then brought back to the operating suite and placed on the operative table in supine position. The right upper extremity was prepped and draped in a standard surgical fashion. Once assured that we had a good block, a 2.0 cm longitudinal incision was made centered over the carpal tunnel. The incision was made through the skin to the subcutaneous tissues using a #15 blade. Dissection was made down to the level of the transverse carpal ligament with care being taken to protect the palmar cutaneous nerve. Once the transverse carpal ligament was clearly visualized, a longitudinal incision was made in the transverse carpal ligament 1st using a #15 blade, then using tenotomy scissors under direct visualization. Care was taken to look for and protect the motor branch of the median nerve when seen in this area. Once satisfied with our carpal tunnel release the wound was copiously irrigated with normal saline and hemostasis was obtained with a brief period of local pressure. The skin edges were reapproximated with some 5.0 nylon suture material and a sterile dressing was applied. The patient appears to have tolerated the procedure well and with no complications. All digits were well vascularized at the conclusion of the case.
[2024-11-05 10:50] VITALS: BP 108/69; PULSE 100; RESP 16; O2SAT 100
== END 2024-11-05 10:55 | disposition home or self-care (01) ==
PROVIDERS: PCP Family Medicine; Visit Provider Orthopaedic Surgery
PROC: (CPT 64721; principal; 2024-11-05 09:30)
DX: G56.01 Carpal tunnel syndrome, right upper limb (principal); Z98.890 Other specified postprocedural states; R20.0 Anesthesia of skin; R20.2 Paresthesia of skin; E11.9 Type 2 diabetes mellitus without complications; E78.5 Hyperlipidemia, unspecified; E66.01 Morbid (severe) obesity due to excess calories; H91.93 Unspecified hearing loss, bilateral; Z68.36 Body mass index [BMI] 36.0-36.9, adult; F32.9 Major depressive disorder, single episode, unspecified; F43.10 Post-traumatic stress disorder, unspecified; F41.0 Panic disorder [episodic paroxysmal anxiety]; Z91.040 Latex allergy status; F17.210 Nicotine dependence, cigarettes, uncomplicated
CPT/HCPCS: 64721; J0171; J2003

== ENCOUNTER → 2024-11-05 08:01 | Outpatient (BNV) | payer MEDICAID, SELFPAY | PROVIDERS: PCP Family Medicine; Visit Provider Orthopaedic Surgery | DX: G56.01 Carpal tunnel syndrome, right upper limb (principal) | CPT/HCPCS: 64721 ==

== ENCOUNTER 2024-11-21 14:17 | Outpatient (AMB) | payer MEDICAID, SELFPAY ==
--- NOTE | 2024-11-21 14:23 | A.OFFVIS_ITS ---
Intake Visit Reasons: PO RT CTR 11/05/24 AR Intake Note: Apolinar is a 39 year old right hand dominant female who presents today for her 1st post operative appointment s/p Right Carpal Tunnel Release 11/05/2024. Patient reports that she is doing well, she has some tenderness at incision site. She reports that she has been doing dishes. Sutures removed and steri strips applied. She is requesting a note for work today and also a return to work note. Hx of Left CTR 07/19/24. Allergies latex [Latex] Allergy (Mild, Unverified 08/27/24 08:54) HIVES HPI HPI PO RT CTR 11/05/24 AR: Details: Apolinar is a 39 year old right hand dominant female who presents today for her 1st post operative appointment s/p Right Carpal Tunnel Release 11/05/2024. Patient reports that she is doing well, she has some tenderness at incision site. She reports that she has been doing dishes. Sutures removed and steri strips applied. She is requesting a note for work today and also a return to work note. Hx of Left CTR 07/19/24. [facility] Medical History Type 2 diabetes mellitus without complication Tobacco dependence Panic disorder without agoraphobia Major depression Posttraumatic stress disorder Morbid obesity Hyperlipidemia Bilateral carpal tunnel syndrome Hearing loss, bilateral Surgical History History of Family History Mother Maternal Aunt Cancer Social History Household Members: Children Housing: Apartment Are you a primary customer care agent to a significant other at home: No Do you presently have visiting nurse or other home services: No Patient Tobacco Use Status: Current everyday Tobacco user Cigarettes Per Day: 8 service: No Current occupational status: employed 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 Good APB muscle firing and good finger cross. Vascular: Capillary refill brisk. ROM: Patient can make a fist and extend all their digits. Skin: Well approximated and well healing incision site noted on the volar right wrist General: No ecchymosis. No erythema or evidence of infection. Assessment & Plan Assessment & Plan (1) Carpal tunnel syndrome of right wrist: Code(s): G56.01 - Carpal tunnel syndrome, right upper limb Category: Medical (2) Carpal tunnel syndrome of left wrist: Code(s): G56.02 - Carpal tunnel syndrome, left upper limb Category: Medical Plan 1. Carpal tunnel syndrome, right, status post release DOS 11/05/2024 Patient appears to be recovering very well postoperatively Patient is educated about the typical recovery course At this time, patient was informed she will require no further acute follow-up with us, as she is recovering well, moving her hand well, has no indications further follow-up Patient states understanding of this and is amenable to this plan Patient will follow-up as needed with any acute concerns Coding Level of Care Code Global (05249) Diagnoses Carpal tunnel syndrome of right wrist G56.01 Carpal tunnel syndrome of left wrist G56.02
--- OUTSIDE RECORDS SUMMARY | 2024-11-21 15:30 | XMS_ITS | Encounter Summary ---
Author Organization [employer] Address [address] 7 [place] [address] Care Team Providers Care Dermatology Nurse Practitioner Name Role Phone Mandi Desir DO Primary Care Provider PuMaryse mtz PharmD Unavailable Encounter Details Date Type Department Care Team (Late st Contact Info) Description 09/12/2023 Telephone [facility] MEDICINE [address] [place], [place] [phone] Mandi Desir DO [address] [place], [place] [phone] Social History Tobacco Use Types Packs/Day Years Used Date Smoking Tobacco: Every Day Cigarettes Passive Smoke Exposure: Current Smokeless Tobacco: Never Alcohol Use Standard Drinks/Week Comments Never 0 (1 standard drink = 0.6 oz pur e alcohol) Depression Answer Date Recorded Patient Health Questionnaire-9 Score 0 12/01/2022 Housing Stability Answer Date Recorded What is your housing situation today? I have chelsey gonzalez 08/02/[address] you li ve. Do you have problems with any of the following? None of the above 08/02/2023 Food Insecurity Answer Date Recorded Within the past 12 months, y ou worried that your food would run out before you got money to buy more: Never True 08/02/2023 Within the past 12 months,th e food you bought just didn't last and you didn't have enough money to get more: Never True Transportation Answer Date Recorded In the past 12 months, has l ack of transportation kept you from medical appts, meetings, work or from getting things needed for daily living? No 08/02/2023 Utilities Answer Date Recorded In the past 12 months, has t he electric, gas, oil or water company threatened to shut off services in your home? No 08/02/2023 Depression Answer Date Recorded Patient Health Questionnaire-2 Score 0 12/01/2022 Comments No Sex and Gender Information Value Date Recorded Sex Assigned at Female 08/16/2022 10:18 AM EDT Legal Sex Female 10:18 AM EDT Gender Identity Female 08/16/2022 10:18 AM EDT Sexual Orientation Straight 08/16/2022 10 :18 AM EDT documented as of this encounter Plan of Treatment Not on file documented as of this encounter Goals Goal Patient Goal Type Associated Problems Recent Progress Patient-Stated? Author Hemoglobin A1c < 7 Result Component 5.7(11/13/2024 11:50 AM EST) No Edward Liu, PharmD documented as of this encounter Visit Diagnoses Not on filedocumented in this encounter Additional Health Concerns Assessment Noted Time PHQ-9 Depression Total Score: 0 12/01/19 23 9:35 AM EST documented as of this encounter Care Teams Dermatology Nurse Practitioner Relationship Specialty Start Date End Date Mandi Desir DO [address] [place] [address] PCP - General Family Medicine 05/03/14 Maryse Hi PharmD [address] [place] [address] Pharmacist Internal Medicine 06/06/23 11/12/24 documented as of this encounter
--- OUTSIDE RECORDS SUMMARY | 2024-11-21 15:30 | XMS_ITS | Encounter Summary ---
Author Organization [employer] Address [address] [place] [address] 7 [place] [address] Care Team Providers Care Rn Chronic Name Role Phone Mandi Desir DO Primary Care Provider PuMaryse mtz PharmD Unavailable Reason for Visit * Reason Comments Care Coordination CHW outreach for SDO H PT-1 and food needs-referral completed Encounter Details Date Type Department Care Team (Latest Contact Info) Description 10/24/2024 Patient Outreach [facility] MEDICINE [address] [place], [place] [phone] Mandi Desir DO [address] [place] [address] Care Coordination (CH[facility] outreach for SDOH PT-1 and food needs-referral completed /) Social History Tobacco Use Types Packs/Day Years Used Date Smoking Tobacco: Every Day Cigarettes Passive Smoke Exposure: Current Smokeless Tobacco: Never Alcohol Use Standard Drinks/Week Comments Never 0 (1 standard drink = 0.6 oz pur e alcohol) Depression Answer Date Recorded Patient Health Questionnaire-9 Score 0 01/31/2024 Patient Health Questionnaire-9 Score 0 01/31/2024 Last PHQ-9: Questionnaire Data Not on file 0 01/31/2024 Housing Stability Answer Date Recorded What is your housing situation today? I have chelsey gonzalez 01/31/[address] you li ve. Do you have problems with any of the following? None of the above 01/31/2024 Food Insecurity Answer Date Recorded Within the past 12 months, y ou worried that your food would run out before you got money to buy more: Never True 01/31/2024 Within the past 12 months,th e food you bought just didn't last and you didn't have enough money to get more: Never True Transportation Answer Date Recorded In the past 12 months, has l ack of transportation kept you from medical appts, meetings, work or from getting things needed for daily living? No 01/31/2024 Utilities Answer Date Recorded In the past 12 months, has t he electric, gas, oil or water company threatened to shut off services in your home? No 01/31/2024 Depression Answer Date Recorded Patient Health Questionnaire-2 Score 0 01/31/2024 Comments No Sex and Gender Information Value Date Recorded Sex Assigned at Female 08/16/2022 10:18 AM EDT Legal Sex Female 10:18 AM EDT Gender Identity Female 08/16/2022 10:18 AM EDT Sexual Orientation Straight 08/16/2022 10 :18 AM EDT documented as of this encounter Progress Notes * Derian Sharma - 10/24/2024 4:20 PM EST CHW Derian Sharma, placed outbound call to patient for assistance with SDOH as a referral was received by the provider. Patient's name and were confirmed. Patient screened positive for the following SDOH food insecurities. CHW referral patient to the local list of pantries in the area for help. PT-1 requested was send out in behalf of patient for [facility] appt. Patient verbalizes understandin g, and able to agree with plan to follow up. Patient educated on extended clinic hours on Mondays through Wednesdays, and Walk-In Urgent Care Located in [facility]. Patient provided with after-hours line for [facility], , which offer night time triage service and option to transfer to inspection machine tender provider if needed. documented in this encounter Plan of Treatment Not on file documented as of this encounter Goals Goal Patient Goal Type Associated Problems Recent Progress Patient-Stated? Author Patient will adhere to medication regimen General No Puia, Maryse, PharmD Hemoglobin A1c < 7 Result Component 5.7( 5 11:50 AM EST) No Edward Liu PharmD Record your blood sugar as directed Result Component No Maryse Hi PharmD documented as of this encounter Visit Diagnoses Not on filedocumented in this encounter Additional Health Concerns Assessment Noted Time PHQ-9 Depression Total Score: 0 01/31/20 24 9:08 AM EDT documented as of this encounter Care Teams Rn Chronic Relationship Specialty Start Date End Date Mandi Desir DO [address] [place] [address] PCP - General Family Medicine 05/03/14 Maryse Hi PharmD [address] [place] [address] Pharmacist Internal Medicine 06/06/23 11/12/24 documented as of this encounter
--- OUTSIDE RECORDS SUMMARY | 2024-11-21 15:30 | XMS_ITS | Encounter Summary ---
Author Organization [employer] Address [address] [facility] 7 [place] [address] Care Team Providers Care Menu Planner Name Role Phone JumaMandi cifuentes Primary Care Provider [phone] Encounter Details Date Type Department Care Team (Latest Contact Info) Description 11/14/[address] [facility] OPTOMETRY [address] [place] [address] Demetrius, Jasmine, OD [address] [place] [address] Presbyopia (Primary Dx) Social History Tobacco Use Types Packs/Day Years [...] is your housing situation today? I have chelseyjamil gonzalez 01/31/[address] you [...] as of this encounter Progress Notes * Jasmine Romo OD - 11/14/2024 9:09 AM EST MH glasses were dispensed, 2 of 2. documented in this encounter Plan of Treatment Not on file documented as of this encounter Goals Goal Patient Goal Type Associated Problems Recent Progress Patient-Stated? Author Patient will adhere to medication regimen General No Maryse Hi, PharmD Hemoglobin A1c < 7 Result Component 5.7( 11:50 AM EST) No DellogEdward morel, PharmD Record your blood sugar as directed Result Component No Maryse Hi, PharmD documented as of this encounter Visit Diagnoses Diagnosis Presbyopia- Primary documented in this encounter Additional Health Concerns Assessment Noted Time PHQ-9 Depression Total Score: 0 01/31/20 24 9:08 AM EDT documented as of this encounter Care Teams Menu Planner Relationship Specialty Start Date End Date Mandi Desir DO [address] [place] [id number] PCP - General Family Medicine 05/03/14 documented as of this encounter
--- OUTSIDE RECORDS SUMMARY | 2024-11-21 15:30 | XMS_ITS | Encounter Summary ---
Author Organization [employer] Address [address] [place] [address] [address] [place] [address] Care Team Providers Care Research Software Engineer Name Role Phone Mandi Desir DO Primary Care Provider Dellogono Edward PharmD Unavailable Unavail able Puia Maryse PharmD Unavailable Reason for Visit * Reason Onset Date Comments PA 01/11/2023 Encounter Details Date Type Department Care Team (Late st Contact Info) Description 01/11/2023 Telephone [facility] MEDICINE [address] [place], [place] [phone] Mandi Desir DO [address] [place], [place] [phone] PA Social History Tobacco Use Types Packs/Day Years Used Date Smoking Tobacco: Every Day Cigarettes Passive Smoke Exposure: Current Smokeless Tobacco: Never Alcohol Use Standard Drinks/Week Comments Never 0 (1 standard drink = 0.6 oz pur e alcohol) Depression Answer Date Recorded Patient Health Questionnaire-9 Score 0 12/01/2022 Depression Answer Date Recorded Patient Health Questionnaire-2 Score 0 12/01/2022 Comments Unknown Sex and Gender Information Value Date Recorded Sex Assigned at Female 08/16/2022 10:18 AM EDT Legal Sex Female 10:18 AM EDT Gender Identity Female 08/16/2022 10:18 AM EDT Sexual Orientation Straight 08/16/2022 10 :18 AM EDT COVID-19 Exposure Response Date Recorded In the last 10 days, have yo u been in contact with someone who was confirmed or suspected to have Coronavirus/COVID-19? No / Unsure 01/13/2023 10:13 AM EDT documented as of this encounter Miscellaneous Notes * Telephone Encounter - Lay Boothe - 01/11/2023 11:44 AM EDT PA initiated for provider * Telephone Encounter - Rut Carey - 01/11/2023 10:47 AM EDT Tc from pt requesting a PA for prazosin 1 mg Capsule and Fluoxetine 20 mg Capsule. Pt states that pharmacy informed that they need a PA from Provider Please sent to [facility]/pharmacy #[id number] - [place], [place] - [address] [place] [address] documented in this encounter Plan of Treatment [...] Time PHQ-9 Depression Total Score: 0 12/01/19 9:35 AM EST documented as of this encounter Care Teams Research Software Engineer Relationship Specialty Start Date End Date Mandi Desir DO [address] [place] [id number] PCP - General Family Medicine 05/03/14 Edward Liu, PharmD [address] [place] [phone] Pharmacist Internal Medicine 11/22/22 06/05/23 Maryse Hi PharmD [address] [place] [phone] Pharmacist Internal Medicine 06/06/23 11/12/24 documented as of this encounter
--- OUTSIDE RECORDS SUMMARY | 2024-11-21 15:30 | XMS_ITS | Encounter Summary ---
Author Organization [employer] Address [address] [place] [address] 7 [place] [address] Care Team Providers Care Manual Plate Filler Name Role Phone Mandi Desir DO Primary Care Provider Maryse Hi PharmD Unavailable [phone] Reason for Visit * Reason Comments Med Refill Encounter Details Date Type Department Care Team (Late st Contact Info) Description 10/25/2023 Refill [facility] MEDICINE [address] [place], [place] [phone] Mandi Desir DO [address] [place], [place] [phone] Type 2 diabetes mellitus without complication, without long-term current use of insulin ([facility]) Social History Tobacco Use Types Packs/Day Years Used Date Smoking Tobacco: Every Day Cigarettes Passive Smoke Exposure: Current Smokeless Tobacco: Never Alcohol Use Standard Drinks/Week Comments Never 0 (1 standard drink = 0.6 oz pur e alcohol) Depression Answer Date Recorded Patient Health Questionnaire-9 Score 17 10/13/2023 Patient Health Questionnaire-9 Score 17 10/13/2023 Last PHQ-9: Questionnaire Data Not on file 1 12/14/2022 Housing Stability Answer Date Recorded What is [...] the past 12 months, has t he [employer], [employer], oil or water [employer] threatened to shut off services in your home? No 08/02/2023 Depression Answer Date Recorded Patient Health Questionnaire-2 Score 3 10/13/2023 Comments No Sex and Gender Information Value [...] as of this encounter Visit Diagnoses Diagnosis Type 2 diabetes mellitus without complication, without long-term current use of insulin ([facility]) documented in this encounter Additional Health Concerns Assessment Noted Time PHQ-9 Depression Total Score: 17 023 12:51 PM EST documented as of this encounter Care Teams Manual Plate Filler Relationship Specialty Start Date End Date Mandi Desir DO [address] [place] [address] PCP - General Family Medicine 05/03/14 Maryse Hi, PharmD [address] [place] [address] Pharmacist Internal Medicine 06/06/23 11/12/24 documented as of this encounter
--- OUTSIDE RECORDS SUMMARY | 2024-11-21 15:30 | XMS_ITS | Clinical Summary ---
Author Organization [employer] Address [address] [place] [address] 7 [place] [address] Care Team Providers Care Optometric Aide Name Role Phone JumaMandi cifuentes Primary Care Provider Allergies Active Allergy Reactions Criticality Noted Date Comments Latex 03/03/2023 Medications * This document contains information received from the source organization and may not represent a complete record from that organization. cholecalciferol (Vitamin D-3) 50 MCG (1999) tablet Take 1 tablet (50 mcg) by mouth Once per day. 90 tablet 3 Active FLUoxetine (PROzac) 20 MG capsuleIndicatio ns:Panic disorder without agoraphobia TAKE 1 CAPSULE BY MOUTH EVERY DAY IN THE MORNING 90 capsule Active loratadine (Claritin) 10 MG tablet Take 1 tablet (10 mg) by mouth if needed each day for allergies. 30 tablet 024 2024 Active prazosin (Minipress) 1 MG capsuleIndicatio ns:Posttraumatic stress disorder TAKE 1 CAPSULE BY MOUTH EVERYDAY AT BEDTIME 90 capsule Active triamcinolone (Nasacort) 55 MCG/ACT nasal inhaler Administer 2 sprays into each nostril Once per day. 16.5 g 024 2024 Active Additional Information Patient not taking.Reported on 11/13/2024 oxybutynin XL (Ditropan XL) 5 MG 24 hr tablet Take 1 tablet (5 mg) by mouth Once per day. Do not crush, chew, or split. 90 tablet 3 024 2024 Active FLUoxetine (PROzac) 10 MG tablet Take 1 tablet (10 mg) by mouth Once per day. Take with 20 mg tablet 30 tablet 2 024 2024 Active hydrOXYzine HCl (Atarax) 25 MG tablet TAKE 1 TABLET BY MOUTH FOUR TIMES DAILY NEEDED FOR ANXIETY 60 tablet 2 Active empagliflozin-me tFORMIN ER (Synjardy XR) 12.5-1000 MG 24 hr tabletIndication s:Type 2 diabetes mellitus without complication, without long-term current use of insulin (CMS/HCC) Take 2 tablets by mouth with breakfast. 60 tablet 025 2025 Active atorvastatin (Lipitor) 80 MG tabletIndication s:Type 2 diabetes mellitus without complication, without long-term current use of insulin (CMS/HCC),Other hyperlipidemia Take 1 tablet (80 mg) by mouth in the morning. 90 tablet Active Alcohol Swabs (Alcohol Prep) 70 % padsIndications: Type 2 diabetes mellitus without complication, without long-term current use of insulin (CMS/HCC) Use to check blood sugar twice daily 100 each Active FreeStyle lancetsIndicatio ns:Type 2 diabetes mellitus without complication, without long-term current use of insulin (CMS/HCC) 1 each by Other route 2 times daily. Use to test blood sugar twice daily, as directed 100 each Active glucose blood (FREESTYLE LITE) test stripIndications :Type 2 diabetes mellitus without complication, without long-term current use of insulin (CMS/HCC) CHECK BY FINGERSTICK ROUTE TWICE A DAY 100 strip Active Mounjaro 7.5 MG/0.5ML solution auto-injector Inject 7.5 mg under the skin 1 (one) time per week. 2 mL Active Alcohol Swabs (Alcohol Prep) 70 % padsIndications: Type 2 diabetes mellitus without complication, without long-term current use of insulin (CMS/HCC) Use to check blood sugar twice daily 100 each 024 2024 Discontinued(R eorder (will not trigger notification to Pharmacy)) FreeStyle lancetsIndicatio ns:Type 2 diabetes mellitus without complication, without long-term current use of insulin ([facility]) 1 each by Other route 2 times daily. Use to test blood sugar twice daily, as directed 100 each 11 024 2024 Discontinued(R eorder (will not trigger notification to Pharmacy)) glucose blood (FREESTYLE LITE) test stripIndications :Type 2 diabetes mellitus without complication, without long-term current use of insulin ([facility]) CHECK BY FINGERSTICK ROUTE TWICE A DAY 100 strip 11 024 2024 Discontinued(R eorder (will not trigger notification to Pharmacy)) empagliflozin-me tFORMIN ER (Synjardy XR) 5-1000 MG 24 hr tabletIndication s:Type 2 diabetes mellitus without complication, without long-term current use of insulin ([facility]) TAKE 2 TABLETS BY MOUTH ONCE DAILY IN THE MORNING WITH FOOD 60 tablet 11 024 2024 Discontinued(A lternate therapy) atorvastatin (Lipitor) 80 MG tabletIndication s:Type 2 diabetes mellitus without complication, without long-term current use of insulin ([facility]),Other hyperlipidemia Take 1 tablet (80 mg) by mouth in the evening. 90 tablet 1 024 2024 Discontinued(R eorder (will not trigger notification to Pharmacy)) Mounjaro 7.5 MG/0.5ML solution auto-injector INJECT ONE PEN (=7.5MG) SUBCUTANEOUSLY ONCE A WEEK DIRECTED 2024 Discontinued(R eorder (will not trigger notification to Pharmacy)) Active Problems Problem Noted Date Diagnosed Date Healthcare maintenance 02/06/2024 Assessment & Plan (02/06/2024 3:24 PM EDT): -s/p flu vaccine JUN 2023 -she declines COVID vaccine -s/p Tdap JUN 2014 -s/p pneumovax JUN 2014 -s/p PCV20 DEC 2022 -Hep B immune -PPD negative AUG 2016 -pap wnl/HPV neg FEBRUARY 2023 -STI/HIV screen negative SEP 2023 Leukocytosis 11/23/2023 Assessment & Plan (02/06/2024 3:22 PM EDT): WBC stable SEP 2023, likely 2/2 tobacco use per hematology -encouraged tobacco cessation -f/u with hematology as scheduled, due SEP 2024 Hidradenitis suppurativa 11/23/2023 Anxiety 10/13/2023 BMI 38.0-38.9,adult 03/16/2023 Carpal tunnel syndrome 03/10/2018 Assessment & Plan (02/06/2024 3:22 PM EDT): With worsening sx -EMG with [id number] R CTS MAY 2018 -EMG with mild b/l CTS FEBRUARY 2018 -f/u with ortho next mos as scheduled Assessment & Plan (12/14/2023 8:29 PM EST): Not improving with conservative rx or steroid injection, it limits significantly her quality of life and work. Discussed with patient re continuing hand brace for driving and to sleep Recommend to fu with orthopedics for NCS results and discuss with them re risk/benefits of procedure, it may be her only option at this point. She's aware that results can not be guaranteed FU with PCP in 3mo Urinary incontinence 03/10/2018 Bilateral hearing loss 10/27/2015 Hyperlipidemia 07/29/2015 Panic disorder without agoraphobia 07/29/2015 Posttraumatic stress disorder 07/29/2015 Major depression, recurrent, chronic 07/29/2015 Assessment & Plan (02/06/2024 3:20 PM EDT): With PTSD and panic d/o, with worsening sx in setting of bereavement -she denies any SI/HI -she has the number for crisis and contracts for safety -restart prozac daily -restart prazosin nightly -restart hydroxyzine prn acute anxiety -she declines referral to therapist -she declines visit with clinician today Assessment & Plan (10/13/2023 1:17 PM EST): PROGRESS NOTE: ID: Apolinar is a 38 y.o. White straight-identified cis-female with previous documented hx of Depression, Anxiety, and Trauma. Hx of services including OP Psychotherapy, who presents for Depression to tele-be. 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 Presented with Hx of trauma in both childhood and adulthood. Hx of MH services through [facility], but had 4 therapist in one year and decided to stop services. Currently taking atarax 25mg and prozac 20mg prescribed by PCP. During IBH Consult Apolinar presenting with depressed mood, changes in sleep difficulty staying asleep and restless, unsatisfying sleep, change in appetite or weight reduce appetite and binge eating at times, psychomotor agitation, thoughts of worthlessness or guilt, fatigue/loss of energy, difficulty concentrating, excessive worry/anxiety, difficulty controlling worry, restless/keyed up/On edge, easily fatigued, difficulty concentrating/Mind going blank , irritability, muscle tension, and sleep disturbance difficulty staying asleep and restless, unsatisfying sleep, and Flashbacks, Intrusive trauma memories and thoughts, Nightmares/night terrors, Hypervigilance, Avoidance of trauma reminders/triggers, Increased startle response, Fear and distrust in relationships, and Isolation from normal social supports; Symptoms are present since mother passed on 2006 and her feeling guilty about it, but they have exacerbated after her father got sick recently and he is currently on ICU and is the only parent left, she lack of formal and informal support, struggling with juggling her father's care, her 3 children and 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 PLAN: New/Additional Services needed: Off-site services for Behavioral Health Integration Plan: External OP therapy referral Patient Self Plan: Patient to utilize skills provided in intervention , Patient to reach out to [facility] team as needed, and Comply with medication. Tobacco dependence 07/29/2015 Type 2 diabetes mellitus 07/29/2015 Assessment & Plan (02/06/2024 3:18 PM EDT): Significant bump in A1c -restart metformin BID -will check with [facility] pharmacy re: mounjaro availability -encouraged dietary changes and wt loss -encouraged regular FS monitoring and bring glucometer to visits for review -will have f/u with [facility] pharmacist scheduled -Cr/GFR nml with mild urine microalbumin SEP 2023 -s/p optho eval JAN [address] [facility] -foot exam next visit* Resolved Problems Problem Noted Date Diagnosed Date Resolved Date Morbid obesity 07/29/2015 03/16/2023 Encounters Date Type Department Care Team Description 11/14/2024 Outside Procedure [facility] OPTOMETRY [address] [place] [address] Demetrius, Jasmine, OD Presbyopia (Primary Dx) 11/13/2024 1:15 PM EST Office Visit [facility] OPTOMETRY [address] [place] [address] Hemant Romon, OD Regular astigmatism of both eyes (Primary Dx) 10/24/2024 Patient Outreach [facility] MEDICINE [address] [place] [phone] Mandi Desir DO Care Coordination (CHW outreach for SDOH PT-1 and food needs-referral completed /) 10/24/[address] [address] Mandi Desir DO PT-1 10/03/[address] [facility] [address] [place] [phone] Mandi Desir DO 09/28/2024 3:00 PM EST Office Visit [facility] OPTOMETRY [address] [place] [phone] Hemant Romon, OD Diabetes type 2, no ocular involvement (CMS/HCC) (Primary Dx); Congenital hypertrophy of retinal pigment epithelium; Presbyopia 09/28/2024 Travel 09/21/2024 Travel 09/05/2024 10:00 AM EST Office Visit [facility] MED[facility]INE [address] [place] [phone] Mandi Desir DO Type 2 diabetes mellitus without complication, without long-term current use of insulin (CMS/HCC) (Primary Dx); Other hyperlipidemia; Major depression, recurrent, chronic (CMS/HCC); Leukocytosis, unspecified type; Bilateral carpal tunnel syndrome; Urinary frequency; Healthcare maintenance; Encounter for immunization 09/05/2024 Travel 08/29/2024 Travel 08/28/2024 Patient Outreach [facility]INE [address] [place] [phone] Mandi Desir DO Pre-visit Planning (SDOH screening completed on 02/02/2024) 08/26/2024 Orders Only [facility] MED[facility]INE [address] [place] [address] Mandi Desir, Type 2 diabetes mellitus without complication, without long-term current use of insulin ([facility]) (Primary Dx) from Last 3 Months Immunizations Name Administration Dates Next Due Hep B, adult 07/04/2015,11/21/2014,10/15/2014 Influenza Injectable Quadriv alant Preservative Free IIV4 MDCK 07/05/2023 Influenza injectable quadriv alent IIV4 with preservative 10/27/2017,08/25/2016,07/04/2015 Influenza injectable quadriv alent preservative free 09/06/2022,10/08/2020,09/20/2019 Influenza, IIV3, injectable 07/16/2014 Influenza, seasonal, injecta ble, preservative free 08/01/2024 Pfizer Covid-19 Vaccine 12+ 09/05/2024, Pfizer Covid-19 Vaccine 12+ Bivalent 09/06/2022, 05/18/2022 Pneumococcal Conjugate PCV 20 12/27/2022 Pneumococcal Polysaccharide PPSV23 07/16/2014 Tdap 08/01/2024,07/16/2014 Family History Medical History Relation Name Comments Asthma Brother Asthma Father Diabetes Father Hypertension Father Substance Abuse Father Cirrhosis Mother HIV Mother Substance Abuse Mother Relation Name Status Comments Brother Father Mother Social History Tobacco Use Types Packs/Day Years Used Date Smoking Tobacco: Every Day Cigarettes Passive Smoke Exposure: Current Smokeless Tobacco: Never Tobacco Cessation:Ready to Q uit: No; Counseling Given: Yes Alcohol Use Standard Drinks/Week Comments Never 0 [...] Orientation Straight 08/16/2022 10 :18 AM EDT Last Filed Vital Signs Vital Sign Reading Time Taken Comments Blood Pressure 129/88 09/05/2024 9:54 AM EST Pulse 102 09/05/2024 9:54 AM EST Temperature 36.2 ??C (97.2 ??F) 09/05/2024 9:54 AM ES T Respiratory Rate 17 09/05/2024 9:54 AM EST Oxygen Saturation 98% 05/09/2024 9:04 AM EDT Inhaled Oxygen Concentration - - Weight 88.5 kg (195 lb) 11/13/2024 11:47 AM EST Height 157.5 cm (5' 2 ) 09/05/2024 9:54 AM EST Body Mass Index 35.67 09/05/2024 9:54 AM EST Plan of Treatment Health Maintenance Due Date Last Done Comments Diabetes: Foot Exam 1996 Alcohol/Substance Use Screening 1998 Family Planning (PISQ) 2001 Hepatitis A Vaccines (1 of 2 - Risk 2-dose series) 2005 Depression Screening 01/30/2025 01/31/2024, 01/31/20 SDOH Screening 01/30/2025 01/31/2024 Lipid Panel 04/30/2025 04/30/2024, 09/16, 09/06/2022, Additional history exists Diabetes: Hemoglobin A1C 05/13/2025 025, 08/01/2024, 04/30/2024, Additional history exists Eye Exam 09/28/2025 09/28/2024, 09/16, 09/28/2024, Additional history exists Tobacco Screening 11/13/2025 11/13/2024 DTaP/Tdap/Td Vaccines (3 - Td or Tdap) 08/01/2034 08/01/2024, 07/16/2014 Zoster Vaccines (1 of 2) 2036 RSV Patients and Patients Aged 60 years or older (1 - 1-dose 75+ series) 2061 Hepatitis B Vaccines Completed 07/04/2015, 11/21/2014, 10/15/2014 Pneumococcal Vaccine: Pediatrics (0 to 5 Years) and At-Risk Patients (6 to 49) Years) Completed 12/27/2022, 07/16/2014 Cervical Cancer Screening Discontinued HPV/Cotest Discontinued 03/16/2023, 03/10/2018 Pap Smear Discontinued 03/16/2023, 03/16/2023 HIV Screening Completed 09/29/2023, 08/18, 10/08/2020, Additional history exists Hepatitis C Screening Completed 09/29/2023 , 09/06/2022, 10/08/2020, Additional history exists Influenza Vaccine Completed 08/01/2024, , 09/06/2022, Additional history exists COVID-19 Vaccine Completed 09/05/2024, , 05/18/2022, Additional history exists HIB Vaccines Aged Out No longer eligi ble based on patient's age to complete this topic HPV Vaccines Aged Out No longer eligi ble based on patient's age to complete this topic IPV Vaccines Aged Out No longer eligi ble based on patient's age to complete this topic Meningococcal Vaccine Aged Out No percy yandel eligible based on patient's age to complete this topic RSV under 20 months Aged Out No longe r eligible based on patient's age to complete this topic Rotavirus Vaccines Aged Out No longer eligible based on patient's age to complete this topic Goals Goal Patient Goal Type Associated Problems Recent Progress Patient-Stated? Author Patient will adhere to medication regimen General No Maryse Hi PharmD Hemoglobin A1c < 7 Result Component 5.7( 11:50 AM EST) No Edward Liu PharmD Record your blood sugar as directed Result Component No Maryse Hi PharmD Procedures Procedure Name Priority Date/Time Associated Diagnosis Comments POCT GLYCATED HEMOGLOBIN, TOTAL Routine 11/13/2024 11:50 AM EST Type 2 diabetes mellitus without complication, without long-term current use of insulin (CMS/[facility]) POCT GLUCOSE Routine 09/05/2024 10:04 AM EST Type 2 diabetes mellitus without complication, without long-term current use of insulin (CMS/HCC) LIPID PANEL, STANDARD Routine 04/30/2024 9:35 AM EDT HEPATITIS C AB W/REFL TO HCV RNA, QN, PCR Routine 09/29/2023 9:28 AM EST HIV 1/2 ANTIGEN/ANTIBODY, FOURTH GENERATION W/RFL Routine 09/29/2023 9:28 AM EST Type 2 diabetes mellitus without complication, without long-term current use of insulin (CMS/HCC) THINPREP PAP, HPV MRNA E6/E7 RFX HPV 16,18/45, CHLAMYDIA/N.GONORRHO EAE Routine 03/16/2023 9:43 AM EDT Pap smear for cervical cancer screening from Last 3 Months or Most Recently Relevant to Health Maintenance Results * POCT HGB A1C (11/13/2024 11:50 AM EST) Hemoglobin A1C 5.7 4.0 - 6.0 % QC Media Lot # [id number] Blood 11/13/2024 11:5 0 AM EST Mandi Desir DO POINT OF CARE TEST ENTER/KATHERINE T ORDERABLES Final Result * POCT Glucose (09/05/2024 10:04 AM EST) Glucose Blood, POC 119 60 - 200 mg/dL QC Media Lot # [id number] Lot# Expiration Date [id number] Blood Capillary blood specimen / Unknown 09/05/2024 10:04 AM EST Mandi Desir DO POINT OF CARE TEST ENTER/KATHERINE T ORDERABLES Final Result * Lipid Panel, Standard (04/30/2024 9:35 AM EDT) Triglycerides 89 <150 mg/dL [facility] Comment:Desirable Triglyceri de: less than 150 mg/dLBorderline High Triglyceride 150-199 mg/dLHigh Triglyceride: 200-499 mg/dLVery High Triglyceride: greater than or equal to 5OO mg/dL Cholesterol 150 <200 mg/dL [facility] Comment:Desirable Cholestero l: less than 200 mg/dLBorderline High Cholesterol: 200-239 mg/dLHigh Cholesterol: greater than 239 mg/dL LDL Cholesterol Calculated 85 <100 mg/dL [facility] Comment:Desirable LDL: less than 100 mg/dLNear Optimal/Above Optimal LDL: 110- 129 mg/dLBorderline High LDL: 130-159 mg/dLHigh LDL: 160-189 mg/dLVery High LDL: greater than or equal to 190 mg/dL HDL Cholesterol 48 >40 mg/dL [facility] Comment:Desirable HDL: great er than 40 mg/dL Note: This HDL assay may give artificially low results in patients with liver disease. 04/30/2024 9:35 AM EDT 04/30/2024 11:04 AM EDT Mandi Desir DO LAB BLOOD ORDERABLES Final R esult [facility] [address] [place], [place] [phone] * Hepatitis C Antibody with Reflex to HCV, RNA, Quantitative, Real-Time PCR (09/29/2023 9:28 AM EST) Hepatitis C Antibody Nonreactive Nonreactive [facility] Comment:Antibodies to HCV no t detected; does not exclude early acuteHCV infection. 09/29/2023 9:28 AM EST 09/29/2023 11:36 AM EST Mandi Desir DO LAB BLOOD ORDERABLES Final R esult [facility] [address] [place] [address] [phone] * HIV-1/2 Antigen and Antibodies, Fourth Generation, with Reflexes (09/29/2023 9:28 AM EST) HIV AB/AG Nonreactive Nonreactive [facility] Comment:HIV-1 p24 Ag and/or HIV-1/HIV-2 Ab not detected.A test result that is nonreactive does not exclude thepossibility of exposure to or infection with HIV-1 and/orHIV-2. Nonreactive results in this assay for individualswith prior exposure to HIV-1 and/or HIV-2 may be due toantigen and antibody levels that are below the limit ofdetection of this assay.The [employer] HIV Ag/Ab Combo assay result andsupplemental assay results should be interpreted inconjunction with the patient's clinical presentation,history and other laboratory results. If the results areinconsistent with clinical evidence, additional testing issuggested to confirm the result. Blood Venous blood specimen / Unknown 09/29/2023 9:28 AM EST 09/29/2023 11:36 AM EST us Mandi Desir DO LAB BLOOD ORDERABLES Final R esult Performing Organization Address City/[facility]/ZIP Co de Phone Number [facility] [address] [place] [address] [phone] * Thinprep PAP, HPV mRNA E6/E7 RFX HPV 16,18/45, Chlamydia/N. Gonorrhoeae (03/16/2023 9:43 AM EDT) Clinical Information: SCREENING PAP [employer] LMP: 20,[id number] [facility] Prev. PAP: YES [employer] Prev. BX: NO [employer] SOURCE: None given [facility] Statement Of Adequacy: [facility] Comment: Satisfactory for evaluation. Endocervical/transformation zone component present. Interpretation/Re sult: Negative for intraepithelial lesion or malignancy. [facility] Mincemeat Maker: Maura hill [employer] Comment: DMM, CT(ASCP) CT screening location: [address] ??[phone] (Always Message) Que Monitor110 Comment: EXPLANATORY NOTE: The Pap is a screening test for cervical cancer. It is not a diagnostic test and is subject to false negative and false positive results. It is most reliable when a satisfactory sample, regularly obtained, is submitted with relevant clinical findings and history, and when the Pap result is evaluated along with historic and current clinical information. HPV nRNA E6/E7 Not Detected Not Detected [facility] Comment: Methodology: [employer]-Mediated Amplification This assay detects E6/E7 viral messenger RNA (mRNA) from 14 high-risk HPV types (16,18,31,33,35,39,45,51,52,56,58,59,66,68). Cervical sources are required for HPV testing. If a vaginal source from a patient who has had a total hysterectomy with removal of cervix was submitted, please contact the testing laboratory for alternative testing options. For additional information, please refer to http://education.Loggly/faq/GAW480s9 (This link if provided for information/ educational purposes only.) Chlamydia trachomatis RNA, TMA, Urogenital NOT DETECTED NOT DETECTED [employer] Neisseria gonorrhoeae RNA, TMA, Urogenital NOT DETECTED NOT DETECTED [facility] (Always Message) Que [employer] Comment: The analytical performance characteristics of this assay, when used to test SurePath(TM) specimens have been determined by [employer]. The modifications have not been cleared or approved by the FDA. This assay has been validated pursuant to the CLIA regulations and is used for clinical purposes. For additional information, please refer to https://education.Loggly/faq/DHO228 (This link is being provided for information/ educational purposes only.) Pap Vial 03/16/2023 9:43 AM EDT 03/17/2023 9:45 PM EDT us Mandi Desir DO LAB PATHOLOGY ORDERABLES Fin al Result [facility] [address], [place] [address] [facility] [address] [place] [phone] from Last 3 Months or Most Recently Relevant to Health Maintenance Insurance [facility] C3 Care Teams Optometric Aide Relationship Specialty Start Date End Date Mandi Desir DO [address] [place] [phone] PCP - General Family Medicine 05/03/14
--- OUTSIDE RECORDS SUMMARY | 2024-11-21 15:30 | XMS_ITS | Encounter Summary ---
Author Organization [employer] Address [address] [place] [address] 7 [place] [address] Care Team Providers Care Therapeutic Radiologist Name Role Phone Mandi Desir DO Primary Care Provider PuiaMaryse PharmD Unavailable Reason for Visit * Reason Onset Date Comments Nurse Triage 11/30/2023 Encounter Details Date Type Department Care Team (Late st Contact Info) Description 11/30/2023 Telephone [facility]INE [address] [place], [place] [phone] Mandi Desir DO [address] [place], [place] [phone] Nurse Triage Social History Tobacco Use Types Packs/Day Years [...] encounter Miscellaneous Notes * Telephone Encounter - Radha Foster RN - 11/30/2023 9:59 AM EST Triage call Pt reports left hand/wrist pain. Pt reports both hands/wrist hurt but left more so. Pt has hx of dx. carpel tunnel and has seen orthopedic surgeon Dr. Pinedo 08/16/23. Pt is asking whatis the next step in this process. Pt did have canceled appt with PCP in October 2023 due to in the family. Pt is taking tylenol/motrin for pain without good effect and is not requesting pain medication. Pt reports splints are not helping. Pt is having difficulty with daily activities due to this pain and limited use of hands. Appt with Dr. Davison 12/12/23 @ 1130am. Pt agrees with disposition and home care reviewed. Insurance is verified as active prior to booking. Protocol Used: Hand and Wrist Pain (Adult) Protocol-Based Disposition: See in Office or Video Visit within 2 Weeks Video visit not offered Positive Triage Question: * Hand or wrist pain is a chronic symptom (recurrent or ongoing AND lasting > 4 weeks) * All higher-acuity triage questions were negative Care Advice Discussed: * Reassurance and Education - Hand or Wrist Pain * Pain Medicines * Pain Medicines - Extra Notes and Warnings * Expected Course * Reasons To Call Back - Moderate pain (e.g., interferes with normal activities) lasts more than 3 days - Mild pain lasts more than 7 days - Signs of infection occur (e.g., spreading redness, warmth, fever) - You become worse * Use a Cold Pack for Pain * Use Heat After 48 Hours for Pain * Rest * Telephone Encounter - Antonietta Hernandez - 11/30/2023 9:25 AM EST Symptom: Hand or Wrist Pain - Not From Injury Outcome: Schedule an urgent appointment (within 1 hour) or talk to a nurse or provider soon Reason: Severe pain now The caller accepted this outcome documented in this encounter Plan of Treatment [...] documented as of this encounter Care Teams Therapeutic Radiologist Relationship Specialty Start Date End Date Mandi Desir DO [address] [place] [address] PCP - General Family Medicine 05/03/14 Maryse Hi, PharmD [address] [place] [address] Pharmacist Internal Medicine 06/06/23 11/12/24 documented as of this encounter
--- OUTSIDE RECORDS SUMMARY | 2024-11-21 15:30 | XMS_ITS | Encounter Summary ---
Author Organization [email or web address] Address [address] [place] [address] 7 [place] [address] Care Team Providers Care Mental Health Technician Name Role Phone Mandi Desir DO Primary Care Provider PuMaryse mtz PharmD Unavailable Reason for Visit * Reason Onset Date Comments PT-1 10/24/2024 Encounter Details Date Type Department Care Team (Late st Contact Info) Description 10/24/2024 Telephone [facility] MEDICINE 230 [place], [place] [phone] Mandi Desir DO 230 [place], [place] [phone] PT-1 Social History Tobacco Use Types Packs/Day Years [...] encounter Miscellaneous Notes * Telephone Encounter - Tom Santos - 10/24/2024 3:34 PM EST Patient calling requesting PT1 Home Address verified: Y/N: Yes Provider name or facility name: [facility] Escort needed: Y/N: No Do you have a wheelchair: Y/N: No If yes- Manual or electric: N/A Visits: (amount of visits) ( x monthly, weekly, daily) 1 time Pt is requesting to be picked up at home and dropped off and brought back home after surgery. Pt is also requesting the name of the transportation company for her records. [phone] documented in this encounter Plan of Treatment Not on file documented as of this encounter Goals Goal Patient Goal Type Associated Problems Recent Progress Patient-Stated? Author Patient will adhere to medication regimen General No Maryse Hi PharmD Hemoglobin A1c < 7 Result Component 5.7( 11:50 AM EST) No Edward Liu PharmChela Record your blood sugar as directed Result Component No Maryse Hi PharmD documented as of this encounter Visit Diagnoses Not on filedocumented in this encounter Additional Health Concerns Assessment Noted Time PHQ-9 Depression Total Score: 0 01/31/20 24 9:08 AM EDT documented as of this encounter Care Teams Mental Health Technician Relationship Specialty Start Date End Date Mandi Desir DO [address] [place] [address] PCP - General Family Medicine 05/03/14 Maryse Hi PharmD [address] [place] [address] Pharmacist Internal Medicine 06/06/23 11/12/24 documented as of this encounter
--- OUTSIDE RECORDS SUMMARY | 2024-11-21 15:30 | XMS_ITS | Encounter Summary ---
Author Organization [employer] Address [address] [place] [address] [address] [place] [address] Care Team Providers Care Glass Blowing Instructor Name Role Phone Mandi Desir Primary Care Provider Dellogono Edward PharmD Unavailable Unavail able Puia Maryse PharmD Unavailable [phone] Reason for Visit * Reason Comments Med Refill Encounter Details Date Type Department Care Team (Late st Contact Info) Description 01/10/2023 Refill [facility] MEDICINE 230 [place], [place] [phone] Priya Quick MD 230 [place], [place] [phone] Posttraumatic stress disorder; Panic disorder without agoraphobia Social History Tobacco Use Types Packs/Day Years [...] as of this encounter Visit Diagnoses Diagnosis Posttraumatic stress disorder Panic disorder without agoraphobia documented in this encounter Additional Health Concerns Assessment Noted Time PHQ-9 Depression Total Score: 0 12/01/19 23 9:35 AM EST documented as of this encounter Care Teams Glass Blowing Instructor Relationship Specialty Start Date End Date Mandi Desir DO [address] [place] [address] PCP - General Family Medicine 05/03/14 Edward Liu, PharmD [address] [place] [address] Pharmacist Internal Medicine 11/22/22 06/05/23 Maryse Hi PharmD [address] [place] [address] Pharmacist Internal Medicine 06/06/23 11/12/24 documented as of this encounter
--- OUTSIDE RECORDS SUMMARY | 2024-11-21 15:30 | XMS_ITS | Encounter Summary ---
Author Organization [employer] Address [address] [facility] 7 [place] [address] Care Team Providers Care Erosion Control Specialist Name Role Phone KarleeMandi Primary Care Provider [phone] Encounter Details Date Type Department Care Team (Late st Contact Info) Description 11/13/2024 1:15 PM EST Office Visit [facility] [address] [place] [address] Demetrius, Jasmine, OD [address] [place] [address] Regular astigmatism of both eyes (Primary Dx) Social History Tobacco Use Types [...] Progress Notes * Jasmine Romo OD - 11/13/2024 1:15 PM EST MH glasses were dispensed, 1 of 2. documented in this encounter Plan [...] as of this encounter Visit Diagnoses Diagnosis Regular astigmatism of both eyes- Primary documented in this encounter Additional Health Concerns Assessment Noted Time PHQ-9 Depression Total Score: 0 01/31/20 24 9:08 AM EDT documented as of this encounter Care Teams Erosion Control Specialist Relationship Specialty Start Date End Date Mandi Desir DO 230 [place] [address] PCP - General Family Medicine 05/03/14 documented as of this encounter
--- OUTSIDE RECORDS SUMMARY | 2024-11-21 15:30 | XMS_ITS | Encounter Summary ---
Author Organization [employer] Address [address] [facility] 7 [place] [address] Care Team Providers Care Ic Design Engineer Name Role Phone Mandi Desir DO Primary Care Provider PuiaMaryse PharmD Unavailable Reason for Visit * Reason Comments Med Refill Encounter Details Date Type Department Care Team (Late st Contact Info) Description 08/15/2023 Refill [facility] MEDICINE 230 [place], [place] [phone] Mandi Desir DO [address] [place], [place] [phone] Posttraumatic stress disorder; Panic disorder without agoraphobia [...] housing situation today? I have chelseyjamil gonzalez 08/02/[address] you [...] documented as of this encounter Care Teams Ic Design Engineer Relationship Specialty Start Date End Date Mandi Desir DO 230 [place] [address] PCP - General Family Medicine 05/03/14 Maryse Hi PharmD [address] [place] [address] Pharmacist Internal Medicine 06/06/23 11/12/24 documented as of this encounter
--- OUTSIDE RECORDS SUMMARY | 2024-11-21 15:30 | XMS_ITS | Encounter Summary ---
Author Organization [employer] [facility] Address [address] [place] [address] [address] [address] Care Team Providers Care Core Checker Name Role Phone Mandi Desir DO Primary Care Provider Edward Liu PharmD Unavailable Unavail able Maryse Hi PharmD Unavailable [phone] Encounter Details Date Type Department Care Team (Late st Contact Info) Description 11/17/2022 Telephone [facility] MEDICINE [address] [place], [place] [phone] Inga Storey LPN Social History Tobacco Use Types Packs/Day Years Used Date Smoking Tobacco: Never Assessed Comments Unknown Sex and Gender Information Value Date Recorded Sex Assigned at Female 08/16/2022 10:18 AM EDT Legal Sex Female 10:18 AM EDT Gender Identity Female 08/16/2022 10:18 AM EDT Sexual Orientation Straight 08/16/2022 10 :18 AM EDT documented as of this encounter Plan of Treatment Not on file documented as of this encounter Visit Diagnoses Not on filedocumented in this encounter Care Teams Core Checker Relationship Specialty Start Date End Date Mandi Desir DO [address] [place] [address] PCP - General Family Medicine 05/03/14 Edward Liu, PharmD [address] [place] [address] Pharmacist Internal Medicine 11/22/22 06/05/23 Maryse Hi, Charly [address] [place] [address] Pharmacist Internal Medicine 06/06/23 11/12/24 documented as of this encounter
== END 2024-11-21 14:39 | disposition home or self-care (01) ==
PROVIDERS: PCP Family Medicine
DX: G56.03 Carpal tunnel syndrome, bilateral upper limbs (principal)
CPT/HCPCS: 99024

== ENCOUNTER → 2024-11-21 14:17 | Outpatient (BNVA) | payer MEDICAID, SELFPAY | PROVIDERS: PCP Family Medicine | DX: Z47.89 Encounter for other orthopedic aftercare (principal); G56.02 Carpal tunnel syndrome, left upper limb; Z98.890 Other specified postprocedural states | CPT/HCPCS: 99212 ==

== ENCOUNTER 2025-04-02 09:42 | Outpatient (REF) | payer MEDICAID, SELFPAY ==
--- OUTSIDE RECORDS SUMMARY | 2025-04-02 10:43 | XMS_ITS | Encounter Summary ---
Author Organization [employer] Address [address] [facility] 7t [place] [address] Care Team Providers Care Household Personal Assistant Name Role Phone Mandi Desir DO Primary Care Provider Dellogadriel Edward PharmD Unavailable Unavail able [place] Maryse PharmD Unavailable Encounter Details Date Type Department Care Team (Late st Contact Info) Description 11/17/2022 Telephone [facility] MEDICINE [address] [place] [phone] Inga Storey LPN Social History Tobacco Use Types Packs/Day Years Used Date Smoking Tobacco: Never Assessed Comments Unknown Sex and Gender Information Value Date Recorded Sex Assigned at Female 08/16/2022 10:18 AM EDT Legal Sex Female 10:18 AM EDT Gender Identity Female 08/16/2022 10:18 AM EDT Sexual Orientation Straight 08/16/2022 10 :18 AM EDT documented as of this encounter Plan of Treatment Upcoming Encounters Date Type Department Care Team (Late st Contact Info) Description 04/02/2025 11:15 AM EDT Office Visit [facility] MEDICINE [address] [place] [phone] Mandi Desir DO [address] [place] [address] Type 2 diabetes mellitus without complication, without long-term current use of insulin (CMS/HCC) (Primary Dx); Other hyperlipidemia; Major depression, recurrent, chronic (CMS/HCC); Leukocytosis, unspecified type; Bilateral carpal tunnel syndrome; Urinary frequency; Healthcare maintenance documented as of this encounter Visit Diagnoses Not on filedocumented in this encounter Care Teams Household Personal Assistant Relationship Specialty Start Date End Date Mandi Desir DO [address] [place] [address] PCP - General Family Medicine 05/03/14 Edward Liu, EnriqueD [address] [place] [address] Pharmacist Internal Medicine 11/22/22 06/05/23 Maryse Hi PharmD [address] [place] [address] Pharmacist Internal Medicine 06/06/23 11/12/24 documented as of this encounter
[2025-04-02 12:06] LABS: Alanine Aminotransferase 20 U/L (0-31); Alkaline Phosphatase 75 U/L (39-117); Anion Gap 11 (12-20); Aspartate Amino Transferase 24 U/L (5-31); Bilirubin Direct 0.2 mg/dL (0.0-0.5); Bilirubin Total 0.4 mg/dL (0.0-1.0); Blood Urea Nitrogen 9 mg/dL (9-16); Calcium 9.2 mg/dL (8.4-10.2); Carbon Dioxide 25 mmol/L (22-29); Chloride 108 mmol/L (96-108); Cholesterol 135 mg/dL (<200); Estimated Glomerular Filt Rate > 60; Glucose Random 114 mg/dL (60-115); HDL Cholesterol 43 mg/dL (>40); LDL Cholesterol Calculated 75 mg/dL (<100); Potassium 4.7 mmol/L (3.3-5.1); Sodium 139 mmol/L (135-145); Total Protein 6.9 g/dL (6.5-8.0); Triglycerides 87 mg/dL (<150)
[2025-04-02 12:33] LABS: Creatinine Urine 39.97 mg/dL; Microalbumin Urine < 5.0 mg/L
[2025-04-02 13:36] LABS: Basophils Percent Auto 0.2 % (0-2); Eosinophils Absolute Auto 0.2 X10*3/uL (0.0-0.4); Eosinophils Percent Auto 1.1 % (0-4); Hematocrit 45.1 % (37.0-47.0); Hemoglobin 14.9 g/dl (12.0-16.0); Imm Gran Abs Auto 0.08 X10*3/uL (0.00-0.03); Imm Gran Pct Auto 0.5 % (0.0-0.4); Lymphocytes Absolute Auto 5.4 X10*3/uL (1.2-4.9); Lymphocytes Percent Auto 33.4 % (20-40); MANUAL DIFF FLAG SCAN; Mean Corpuscular Volume 90.7 fL (80.0-98.0); Mean Platelet Volume 10.3 fL (9.4-12.3); Monocytes Percent Auto 6.3 % (2-11); Neutrophils Absolute Auto 9.4 x10*3/uL (2.0-8.3); Neutrophils Percent Auto 58.5 % (45-73); Platelet Count 309 X10*3/uL (160-400); Red Blood Count 4.97 X10*6/uL (4.20-5.50); Red Cell Distribution Width 13.2 % (11.0-16.0); SCAN SMEAR FLAG 1; White Blood Count 16.1 X10*3/uL (4.8-10.8)
[2025-04-02 13:37] LABS: INTERNATIONAL NORM RATIO 0.9 (0.9-1.1); Prothrombin Time 10.5 SEC (10.9-12.4)
[2025-04-02 13:39] LABS: Partial Thromboplastin Time 29.4 SEC (26.0-36.8)
[2025-04-02 13:46] LABS: Iron 133 mcg/dL (30-160); Percent Iron Saturation 41 % (15-50); Total Iron Binding Capacity 321 mcg/dL (228-428); Unsaturated Iron Binding 188 ug/dL
[2025-04-02 14:03] LABS: Ferritin 15 ng/mL (10-122); Free T4 (Free Thyroxine) 1.09 ng/dL (0.71-1.85); SLIDE REVIEW VERIFIED; Thyroid Stimulating Hormone 1.32 uIU/mL (0.32-4.0); Vitamin D 25-OH Total 44.6 ng/mL (>30)
[2025-04-02 14:14] LABS: Folate 9.8 ng/mL (> or = 4.0); Vitamin B12 339 pg/mL (200-900)
== END 2025-04-02 09:43 | disposition home or self-care (01) ==
LOC: HO.HHCL 09:42
PROVIDERS: PCP Family Medicine; Visit Provider Family Medicine
DX: R23.3 Spontaneous ecchymoses (principal); R53.83 Other fatigue; E78.49 Other hyperlipidemia; E11.9 Type 2 diabetes mellitus without complications
CPT/HCPCS: 36415; 80048; 80061; 80076; 82043; 82306; 82570; 82607; 82728; 82746; 83540; 84439; 84443; 85025; 85610; 85730

== ENCOUNTER 2025-10-07 11:24 | Outpatient (REF) | payer MEDICAID, SELFPAY ==
--- OUTSIDE RECORDS SUMMARY | 2025-10-07 10:45 | XMS_ITS | Encounter Summary ---
Author Organization [employer] Address [address] [facility] 7t [place] [address] Care Team Providers Care Pattern Grader Cutter Name Role Phone Mandi Desir DO Primary Care Provider Jennyfer Nova RN Unavailable [phone] Haley Ardon Unavailable Encounter Details Date Type Department Care Team (Late st Contact Info) Description 10/07/2025 10:45 AM EST Office Visit [facility] MEDICINE 230 [place], [place] [phone] Mandi Desir DO 230 [place], [place] [phone] Type 2 diabetes mellitus without complication, without long-term current use of insulin (HCC); Urinary frequency Social History Tobacco Use Types Packs/Day Years Used Date Smoking Tobacco: Every Day Cigarettes Passive Smoke Exposure: Current Smokeless Tobacco: Never Alcohol Use Standard Drinks/Week Comments Never 0 (1 standard drink = 0.6 oz pur e alcohol) Depression Answer Date Recorded Patient Health Questionnaire-9 Score 13 04/02/2025 Patient Health Questionnaire-9 Score 13 04/02/2025 Last PHQ-9: Questionnaire Data Not on file 0 04/02/2025 Housing Stability Answer Date Recorded What is your housing situation today? I have chelsey gonzalez 04/02/[address] you li ve. Do you have problems with any of the following? Mold 04/02/2025 Food Insecurity Answer Date Recorded Within the past 12 months, y ou worried that your food would run out before you got money to buy more: Sometimes True 2024 Within the past 12 months,th e food you bought just didn't last and you didn't have enough money to get more: Never True 04/02/2025 Transportation Answer Date Recorded In the past 12 months, has l ack of transportation kept you from medical appts, meetings, work or from getting things needed for daily living? No 04/02/2025 Utilities Answer Date Recorded In the past 12 months, has t he [employer], gas, oil or water company threatened to shut off services in your home? No 04/02/2025 Depression Answer Date Recorded Patient Health Questionnaire-2 Score 4 04/02/2025 Internet Access Answer Date Recorded Internet Access Q1 Yes 04/02/2025 Internet Access Q2 Not on file 04/02/2025 Comments No Sex and Gender Information Value Date Recorded Sex Assigned at Female 08/16/2022 10:18 AM EDT Legal Sex Female 10:18 AM EDT Gender Identity Female 08/16/2022 10:18 AM EDT Sexual Orientation Straight 08/16/2022 10 :18 AM EDT documented as of this encounter Last Filed Vital Signs Vital Sign Reading Time Taken Comments Blood Pressure 110/76 10/07/2025 10:59 AM EST Pulse 88 10/07/2025 10:59 AM EST Temperature 37.2 C (98.9 F) 10/07/2025 10:59 AM EST Respiratory Rate 21 10/07/2025 10:59 AM EST Oxygen Saturation 97% 10/07/2025 10:59 AM EST Inhaled Oxygen Concentration - - Weight 93 kg (205 lb) 10/07/2025 10:59 AM EST Height - - Body Mass Index 37.49 04/02/2025 11:27 AM EDT documented in this encounter Plan of Treatment Scheduled Orders Name Type Priority Associated Diagnoses Orde r Schedule Culture, Urine, Routine Microbiology Routine Urinary frequency Expected: 10/07/2025 (Approximate), Expires: 10/07/2026 documented as of this encounter Goals Goal Patient Goal Type Associated Problems Recent Progress Patient-Stated? Author Patient will adhere to medication regimen General No Maryse Hi, Charly Hemoglobin A1c < 7 Result Component 6.5( 11:05 AM EST) No Edward Liu PharmD Record your blood sugar as directed Result Component No Maryse Hi PharmD Help patients manage their type 2 diabetes Care Plan Help patients manage their type 2 diabetes No Rain Mccann MA Weekly blood pressure task Care Plan Weekly blood pressure task No Rain Mccann MA Help patients manage their type 2 diabetes Care Plan Help patients manage their type 2 diabetes No Rain Mccann MA Patient has chronic kidney disease Care Plan Patient has chronic kidney disease No Rain Mccann MA Weekly blood pressure task Care Plan Weekly blood pressure task No Rain Mccann MA Patient has chronic kidney disease Care Plan Patient has chronic kidney disease No Rain Mccann MA Weekly blood pressure task Care Plan Weekly blood pressure task No Rain Mccann MA Weekly blood pressure task Care Plan Weekly blood pressure task No Rain Mccann MA Patient has chronic kidney disease Care Plan Patient has chronic kidney disease No Rain Mccann MA Patient has chronic kidney disease Care Plan Patient has chronic kidney disease No Rain Mccann MA Weekly blood pressure task Care Plan Weekly blood pressure task No Rain Mccann MA Weekly blood pressure task Care Plan Weekly blood pressure task No Rain Mccann MA Patient has chronic kidney disease Care Plan Patient has chronic kidney disease No Rain Mccann MA Patient has chronic kidney disease Care Plan Patient has chronic kidney disease No Rain Mccann MA documented as of this encounter Procedures Procedure Name Priority Date/Time Associated Diagnosis Comments POCT URINALYSIS DIPSTICK Routine 10/07/2025 11:56 AM EST Urinary frequency POCT GLYCATED HEMOGLOBIN, TOTAL Routine 10/07/2025 11:05 AM EST Type 2 diabetes mellitus without complication, without long-term current use of insulin (HCC) POCT GLUCOSE ([id number]-94874) Routine 10/07/2025 11:04 AM EST Type 2 diabetes mellitus without complication, without long-term current use of insulin (HCC) documented in this encounter Results * POCT Urinalysis (10/07/2025 11:56 AM EST) Color, UA Yellow Clarity, UA Hazy Glucose, UA 3+ 500+++ Comment:1000mg Bilirubin, UA Negative Ketones, UA Negative Spec Grav, UA 1.020 Blood, UA Negative Negative, None Detected pH, UA 5.5 Protein, UA Negative Urobilinogen, UA 0.2 Leukocytes, UA Negative Negative, Rare, Trace, 1+ (17), 2+ (35), 3+ (70), Trace (15) Nitrite, UA Negative Negative, None Detected [employer] Lot # [id number] Lot# Expiration Date , Urine (Urine, Random) 10/07/2025 11:56 AM EST Result [facility] Mandi Karlee HENNESSY POINT OF CARE TEST ENTER/KATHERINE T ORDERABLES Final Result * (ABNORMAL) POCT Hgb A1c (10/07/2025 11:05 AM EST) Hemoglobin A1C 6.5(A) 4.0 - 5.7 % [employer] Lot # [id number] Lot# Expiration Date 587, Blood 10/07/2025 11:0 5 AM EST Result [facility] Mandi Karlee HENNESSY POINT OF CARE TEST ENTER/KATHERINE T ORDERABLES Final Result * POCT Glucose (10/07/2025 11:04 AM EST) Glucose Blood, POC 110 60 - 200 mg/dL [employer] Lot # [id number] Lot# Expiration Date , Blood Capillary blood specimen / Unknown 10/07/2025 11:04 AM EST Result [facility] Mandi Desir DO POINT OF CARE TEST ENTER/KATHERINE T ORDERABLES Final Result documented in this encounter Visit Diagnoses Diagnosis Type 2 diabetes mellitus without complication, without long-term current use of insulin (HCC) Urinary frequency documented in this encounter Additional Health Concerns Active Problems Noted Date Diagnosed Date Help patients manage their type 2 diabetes 09/11 Weekly blood pressure task 09/11/2025 Help patients manage their type 2 diabetes 09/11 Patient has chronic kidney disease 09/11/2025 Weekly blood pressure task 09/11/2025 Patient has chronic kidney disease 09/11/2025 Weekly blood pressure task 10/04/2025 Weekly blood pressure task 10/04/2025 Patient has chronic kidney disease 10/04/2025 Patient has chronic kidney disease 10/04/2025 Weekly blood pressure task 10/07/2025 Weekly blood pressure task 10/07/2025 Patient has chronic kidney disease 10/07/2025 Patient has chronic kidney disease 10/07/2025 Assessment Noted Time PHQ-9 Depression Total Score: 13 025 4:06 PM EDT documented as of this encounter Care Teams Pattern Grader Cutter Relationship Specialty Start Date End Date Mandi Desir DO [address] [place] [address] PCP - General Family Medicine 05/03/14 Jennyfer Nova RN [address] [place] [address] Registered Nurse Family Medicine 07/17/25 Haley Ardon 07/17/25 documented as of this encounter
--- OUTSIDE RECORDS SUMMARY | 2025-10-08 12:50 | XMS_ITS | Encounter Summary ---
Author Organization [employer] Address [address] [facility] 7t [place] [address] Care Team Providers Care Unit Manager Convenience Stores Name Role Phone Mandi Desir DO Primary Care Provider Jennyfer Nova RN Unavailable [phone] Haley Ardon Unavailable Reason for Visit * Reason Comments Care Coordination CM/CHW outreach Encounter Details Date Type Department Care Team (Latest Contact Info) Description 10/08/2025 Patient Outreach [facility] MEDICINE [address] [place], [place] [phone] Mandi Desir DO [address] [place], [place] [phone] Care Coordination (CM/CHW outreach) Social History Tobacco Use Types Packs/Day Years [...] as of this encounter Progress Notes * Haley Ardon - 10/08/2025 9:16 AM EST CHW Haley Ardon, placed outbound call to patient introducing herself from [facility] CM Department, in regards to offering services. Patient's name and was confirmed. Patient agreesto participate in program. Appt. for initial assessment scheduled for 10/30/25 @ 10AM tele with CM Jennyfer Nova. CHW reinforced direct contact information or for any additional questions or concerns and extended clinic hours on Mondays and Wednesdays, and Walk-In Urgent Care Located in [facility] of [facility]. Patient provided with after-hours line for [facility], , which offer night time triage service and option to transfer to continuous improvement facilitator provider if needed. Patient ve rbalizes understanding, and able to repeat back to insurance underwriter sales. documented in this encounter Plan of Treatment Not on file documented as of this encounter Goals Goal Patient Goal Type Associated Problems Recent Progress Patient-Stated? Author Patient will adhere to medication regimen General No Maryse Hi PharmD Hemoglobin A1c < 7 Result Component 6.5( [...] Care Plan Weekly blood pressure task No Haley Ardon Weekly blood pressure task Care Plan Weekly blood pressure task No Haley Ardon Patient has chronic kidney disease Care Plan Patient has chronic kidney disease No Haley Ardon Patient has chronic kidney disease Care Plan Patient has chronic kidney disease No Haley Ardon documented as of this encounter Visit Diagnoses Not on filedocumented in this encounter Additional Health Concerns Active [...] 10/07/2025 Patient has chronic kidney disease 10/07/2025 Weekly blood pressure task 10/08/2025 Weekly blood pressure task 10/08/2025 Patient has chronic kidney disease 10/08/2025 Patient has chronic kidney disease 10/08/2025 Assessment Noted Time PHQ-9 Depression Total Score: 13 025 4:06 PM EDT documented as of this encounter Care Teams Unit Manager Convenience Stores Relationship Specialty Start Date End Date Mandi Desir DO [address] [place] [address] PCP - General Family Medicine 05/03/14 Jennyfer Nova, PATSY [address] [place] [address] Registered Nurse Family Medicine 07/17/25 Haley Ardon 07/17/25 documented as of this encounter
--- OUTSIDE RECORDS SUMMARY | 2025-10-08 12:50 | XMS_ITS ---
Author Organization [employer] Address [address] [place] [address] 7 [place] [address] Care Team Providers Care Solar Project Coordination Specialist Name Role Phone Mandi Desir DO Primary Care Provider Jennyfer Nova RN Unavailable [phone] Haley Ardon Unavailable CHW Complex Status:Outreach In Progress (Enrolling) Start date:07/17/2025 Enrollment reason:ADT Feed Overview ED- Pt went to [facility] ED on 07/16/25. Please outreach for enrollment. Case Team Name Relationship Phone Haley Ardon(Responsible Staff) [phone] Continued Care and Services Coordination
--- OUTSIDE RECORDS SUMMARY | 2025-10-08 12:50 | XMS_ITS | Encounter Summary ---
Author Organization [employer] Address [address] [facility] 7t [place] [address] Care Team Providers Care Medical Typist Name Role Phone Mandi Desir DO Primary Care Provider [phone] Maryse Hi PharmD Unavailable Jennyfer Nova RN Unavailable [phone] Haley Ardon Unavailable Reason for Visit * Reason Comments Med Refill Encounter Details Date Type Department Care Team (Late st Contact Info) Description 10/25/2023 Refill [facility] MEDICINE [address] [place], [place] [phone] Mandi Desir DO [address] [place], [place] [phone] Type 2 diabetes mellitus without complication, without long-term current use of insulin ([facility]) Social History Tobacco Use Types Packs/Day Years [...] to medication regimen General No Maryse Hi, PharmChela Hemoglobin A1c < 7 Result Component 6.5( 5 11:05 AM EST) No Edward Liu PharmChela Record your blood sugar as directed Result Component No Maryse Hi PharmD documented as of this encounter Visit Diagnoses Diagnosis Type 2 diabetes mellitus without complication, without long-term current use of insulin (HCC) documented in this encounter Additional Health Concerns Assessment Noted Time PHQ-9 Depression Total Score: 17 023 12:51 PM EST documented as of this encounter Care Teams Medical Typist Relationship Specialty Start Date End Date Mandi Desir DO [address] [place] [address] PCP - General Family Medicine 05/03/14 Maryse Hi, PharmD [address] [place] [address] Pharmacist Internal Medicine 06/06/23 11/12/24 Jennyfer Nova RN [address] [place] [address] ELDON Singh [phone] Registered Nurse Family Medicine 07/17/25 Haley Ardon 07/17/25 documented as of this encounter
--- OUTSIDE RECORDS SUMMARY | 2025-10-08 12:50 | XMS_ITS | Encounter Summary ---
Author Organization [employer] Address [address] [facility] 7t [place] [address] Care Team Providers Care General Labor Name Role Phone Mandi Desir DO Primary Care Provider [phone] Maryse Hi PharmD Unavailable Jennyfer Nova RN Unavailable [phone] Haley Ardon Unavailable Encounter Details Date Type Department Care Team (Late st Contact Info) Description 09/12/2023 Telephone [facility] MEDICINE 230 [place], [place] [phone] Mandi Desir DO [address] [place], [place] [phone] Social History Tobacco Use Types Packs/Day Years [...] Author Hemoglobin A1c < 7 Result Component 6.5(10/07/2025 11:05 AM EST) No Edward Liu, PharmD documented as of this encounter Visit Diagnoses Not on filedocumented in this encounter Additional Health Concerns Assessment Noted Time PHQ-9 Depression Total Score: 0 12/01/19 23 9:35 AM EST documented as of this encounter Care Teams General Labor Relationship Specialty Start Date End Date Mandi Desir DO [address] [place] [address] PCP - General Family Medicine 05/03/14 Maryse Hi PharmD [address] [place] [address] Pharmacist Internal Medicine 06/06/23 11/12/24 Jennyfer Nova, PATSY [address] [place] [address] Registered Nurse Family Medicine 07/17/25 Haley Ardon 07/17/25 documented as of this encounter
--- OUTSIDE RECORDS SUMMARY | 2025-10-08 12:50 | XMS_ITS | Encounter Summary ---
Author Organization [employer] Address [address] [place] [address] 7t [place] [address] Care Team Providers Care Survey Research Professor Name Role Phone Karlee Mandi Primary Care Provider DelEdward garcia PharmD Unavailable Unavail able Maryse Hi PharmD Unavailable Jennyfer Nova RN Unavailable [phone] Haley Ardon Unavailable Reason for Visit * Reason Comments Med Refill Encounter Details Date Type Department Care Team (Late st Contact Info) Description 01/10/2023 Refill [facility] MEDICINE [address] [place] [address] Priya Quick MD [address] [place], [place] [phone] Posttraumatic stress disorder; Panic disorder without agoraphobia [...] documented as of this encounter Care Teams Survey Research Professor Relationship Specialty Start Date End Date Mandi Desir DO [address] [place] [address] PCP - General Family Medicine 05/03/14 Edward Liu, PharmD [address] [place] [address] Pharmacist Internal Medicine 11/22/22 06/05/23 Maryse Hi PharmD [address] [place] [address] Pharmacist Internal Medicine 06/06/23 11/12/24 Jennyfer Nova RN [address] [place] [address] Registered Nurse Family Medicine 07/17/25 Haley Ardon 07/17/25 documented as of this encounter
--- OUTSIDE RECORDS SUMMARY | 2025-10-08 12:50 | XMS_ITS | Encounter Summary ---
Author Organization [employer] Address [address] [facility] [address] 7t [place] [address] Care Team Providers Care Twister Doffer Name Role Phone Mandi Desir DO Primary Care Provider Jennyfer Nova RN Unavailable [phone] Haley Ardon Unavailable Encounter Details Date Type Department Care Team (Latest Contact Info) Description 10/06/2025 Travel Social History Tobacco Use Types Packs/Day Years [...] Mccann [place] documented as of this encounter Visit Diagnoses [...] 10/04/2025 Patient has chronic kidney disease 10/04/2025 Assessment Noted Time PHQ-9 Depression Total Score: 13 025 4:06 PM EDT documented as of this encounter Care Teams Twister Doffer Relationship Specialty Start Date End Date Mandi Desir DO [address] [place] [phone] PCP - General Family Medicine 05/03/14 Jennyfer Nova RN [address] [place] [address] Registered Nurse Family Medicine 07/17/25 Haley Ardon 07/17/25 documented as of this encounter
--- OUTSIDE RECORDS SUMMARY | 2025-10-08 12:50 | XMS_ITS | Encounter Summary ---
Author Organization [employer] [facility] Address [address] [place] [address] 7t [place] [address] Care Team Providers Care Industrial Manufacturing Technician Name Role Phone Mandi Desir DO Primary Care Provider Edward iLu PharmD Unavailable Unavail able Maryse Hi PharmD Unavailable Jennyfer Nova RN Unavailable [phone] Haley Ardon Unavailable Encounter Details Date Type Department Care Team (Late st Contact Info) Description 11/17/2022 Telephone [facility] MEDICINE [address] [place], [place] [phone] Inga Storey LPN Social History Tobacco Use [...] on filedocumented in this encounter Care Teams Industrial Manufacturing Technician Relationship Specialty Start Date End Date Mandi Desir DO [address] [place] [address] PCP - General Family Medicine 05/03/14 Edward Liu, PharmD [address] [place] [address] Pharmacist Internal Medicine 11/22/22 06/05/23 Maryse Hi, Charly [address] [place] [address] Pharmacist Internal Medicine 06/06/23 11/12/24 Jennyfer Nova RN [address] [place] [address] Registered Nurse Family Medicine 07/17/25 Haley Ardon 07/17/25 documented as of this encounter
--- OUTSIDE RECORDS SUMMARY | 2025-10-08 12:50 | XMS_ITS | Encounter Summary ---
Author Organization [employer] Address 75 [facility] 7t [place] [address] Care Team Providers Care Hematology Technician Name Role Phone Mandi Desir DO Primary Care Provider Jennyfer Nova RN Unavailable [phone] Haley Ardon Unavailable Reason for Visit * Reason Onset Date Comments Chart Prep 10/04/2025 Encounter Details Date Type Department Care Team (Late st Contact Info) Description 10/04/2025 Telephone [facility] MEDICINE 230 [place], [place] [phone] Mandi Desir DO 230 [place], [place] [phone] Chart Prep Social History Tobacco Use Types Packs/Day Years [...] the past 12 months, has t he [employer], gas, oil or water company threatened to [...] encounter Miscellaneous Notes * Telephone Encounter - Rain Mccann [place] - 10/04/2025 9:16 AM EST Chart Prep Labs: done Images: not applicable Referrals: not applicable Vaccines due: Covid, Flu, and HPV Screenings: eye exam, foot exam, LMP, and PISQ Overdue care gaps: A1c, Glucose, and SBIRT documented in this encounter Plan of Treatment Not on file documented as of this encounter Goals Goal Patient Goal Type Associated Problems Recent Progress Patient-Stated? Author Patient will adhere to medication regimen General No Maryse Hi PharmD Hemoglobin A1c < 7 Result Component 6.5( 11:05 AM EST) No Edward Liu PharmD Record your blood sugar as directed Result Component No Maryse Hi PharmChela Help patients manage their type 2 diabetes [...] Noted Time PHQ-9 Depression Total Score: 13 04/02/ 025 4:06 PM EDT documented as of this encounter Care Teams Hematology Technician Relationship Specialty Start Date End Date Mandi Desir DO [address] [place] [address] PCP - General Family Medicine 05/03/14 Jennyfer Nova RN [address] [place] [address] Registered Nurse Family Medicine 07/17/25 Haley Ardon 07/17/25 documented as of this encounter
--- OUTSIDE RECORDS SUMMARY | 2025-10-08 12:50 | XMS_ITS | Encounter Summary ---
Author Organization [employer] Address [address] [facility] [address] 7t [place] [address] Care Team Providers Care Regional Account Manager Name Role Phone Mandi Desir DO Primary Care Provider [phone] Jennyfer Nova RN Unavailable [phone] Haley Ardon Unavailable Encounter Details Date Type Department Care Team (Latest Contact Info) Description 10/07/2025 Travel Social History Tobacco Use Types Packs/Day [...] documented as of this encounter Care Teams Regional Account Manager Relationship Specialty Start Date End Date Mandi Desir DO 230 [place] [address] PCP - General Family Medicine 05/03/14 Jennyfer Nova RN [address] [place] [address] Registered Nurse Family Medicine 07/17/25 Haley Ardon 07/17/25 documented as of this encounter
--- OUTSIDE RECORDS SUMMARY | 2025-10-08 12:50 | XMS_ITS | Encounter Summary ---
Author Organization [employer] Address [address] [facility] 7t [place] [address] Care Team Providers Care Mattress Specialist Name Role Phone Mandi Desir DO Primary Care Provider Maryse Hi PharmD Unavailable Jennyfer Nova RN Unavailable [phone] Haley Ardon Unavailable Reason for Visit * Reason Onset Date Comments Nurse Triage 11/30/2023 Encounter Details Date Type Department Care Team (Late st Contact Info) Description 11/30/2023 Telephone [facility] MEDICINE 230 [place], [place] [phone] Mandi Desir DO [address] [place], [place] [phone] Nurse Triage Social History Tobacco Use Types [...] the past 12 months, has t he [employer], gas, oil or water [employer] threatened to shut off services in your [...] documented as of this encounter Care Teams Mattress Specialist Relationship Specialty Start Date End Date Mandi Desir DO [address] [place] [address] PCP - General Family Medicine 05/03/14 Maryse Hi, PharmD [address] [place] [address] Pharmacist Internal Medicine 06/06/23 11/12/24 Jennyfer Nova RN [address] [place] [address] Registered Nurse Family Medicine 07/17/25 Haley Ardon 07/17/25 documented as of this encounter
--- OUTSIDE RECORDS SUMMARY | 2025-10-08 12:50 | XMS_ITS | Encounter Summary ---
Author Organization [employer] Address [address] [facility] 7t [place] [address] Care Team Providers Care Desk Lieutenant Name Role Phone Mandi Desir DO Primary Care Provider Maryse Hi PharmD Unavailable Jennyfer Nova RN Unavailable [phone] Haley Ardon Unavailable Reason for Visit * Reason Comments Med Refill Encounter Details Date Type Department Care Team (Late st Contact Info) Description 08/15/2023 Refill [facility] MEDICINE 230 [place], [place] [phone] Mandi Desir DO [address] [place], [place] [phone] Posttraumatic stress disorder; Panic disorder without agoraphobia [...] documented as of this encounter Care Teams Desk Lieutenant Relationship Specialty Start Date End Date Mandi Desir DO [address] [place] [address] PCP - General Family Medicine 05/03/14 Maryse Hi PharmD [address] [place] [address] Pharmacist Internal Medicine 06/06/23 11/12/24 Jennyfer Nova RN [address] [place] [address] Registered Nurse Family Medicine 07/17/25 Haley Ardon 07/17/25 documented as of this encounter
--- OUTSIDE RECORDS SUMMARY | 2025-10-08 12:50 | XMS_ITS | Clinical Summary ---
Author Organization [employer] Address [address] [facility] 7t [place] [address] Care Team Providers Care Collar Worker Name Role Phone Liza Desirfer Primary Care Provider Jennyfer Nova RN Unavailable [phone] Haley Ardon Unavailable Allergies Active Allergy Reactions Criticality Noted Date Comments Latex Hives Low 03/03/2023 Medications * This document contains information received from the source organization and may not represent a complete record from that organization. empagliflozin-metF ORMIN ER (Synjardy XR) 12.5-1000 MG 24 hr tabletIndications: Type 2 diabetes mellitus without complication, without long-term current use of insulin (HCC) Take 2 tablets by mouth with breakfast. 60 tablet 11 09/26/2025 11:13 AM EST 11/13/19 25 026 Active Alcohol Swabs (Alcohol Prep) 70 % padsIndications:Ty pe 2 diabetes mellitus without complication, without long-term current use of insulin (HCC) Use to check blood sugar twice daily 100 each 09/26/2025 11:13 AM EST 11/13/19 25 Active FreeStyle lancetsIndications :Type 2 diabetes mellitus without complication, without long-term current use of insulin (HCC) 1 each by Other route 2 times daily. Use to test blood sugar twice daily, as directed 100 each 09/26/2025 11:13 AM EST 11/13/19 25 Active glucose blood (FREESTYLE LITE) test stripIndications:T ype 2 diabetes mellitus without complication, without long-term current use of insulin ([facility]) CHECK BY FINGERSTICK ROUTE TWICE A DAY 100 strip 11 09/26/2025 11:13 AM EST 11/13/19 25 Active Mounjaro 7.5 MG/0.5ML solution auto-injector Inject 7.5 mg under the skin 1 (one) time per week. 2 mL 11 09/26/2025 11:13 AM EST 11/13/19 25 Active loratadine (Claritin) 10 MG tablet TAKE 1 TABLET BY MOUTH EVERY MORNING NEEDED FOR ALLERGIES 90 tablet 3 02/22/20 25 Active cholecalciferol VITAMIN D (Vitamin D-3) 50 MCG (1999 UT) tablet TAKE 1 TABLET BY MOUTH EVERY MORNING 90 tablet 3 09/26/2025 11:13 AM EST 02/22/20 25 Active prazosin (Minipress) 1 MG capsuleIndications :Posttraumatic stress disorder TAKE 1 CAPSULE BY MOUTH AT BEDTIME 90 capsule 3 09/26/2025 11:13 AM EST 02/22/20 25 Active atorvastatin (Lipitor) 80 MG tabletIndications: Type 2 diabetes mellitus without complication, without long-term current use of insulin ([facility]),Other hyperlipidemia TAKE 1 TABLET BY MOUTH EVERY MORNING 90 tablet 3 02/22/20 25 Active FLUoxetine (PROzac) 20 MG capsuleIndications :Panic disorder without agoraphobia Take 2 capsules (40 mg) by mouth Once per day. TAKE 1 CAPSULE BY MOUTH EVERY MORNING 180 capsule 1 04/02/20 25 026 Active traZODone (Desyrel) 50 MG tablet Take 1 tablet (50 mg) by mouth at bedtime. 90 tablet 1 04/02/20 25 026 Active oxybutynin XL (Ditropan XL) 10 MG 24 hr tablet Take 1 tablet (10 mg) by mouth Once per day. Do not crush, chew, or split. 90 tablet 3 04/02/20 25 026 Active hydrOXYzine HCl (Atarax) 25 MG tablet TAKE 1 TABLET BY MOUTH FOUR TIMES DAILY NEEDED FOR ANXIETY 60 tablet 2 09/26/2025 11:13 AM EST 07/26/20 25 Active ciprofloxacin (Cipro) 500 MG tablet Take 1 tablet (500 mg) by mouth 2 times daily for 5 days. 10 tablet 10/07/20 25 025 Active Active Problems Problem Noted Date Diagnosed Date [...] PM EDT): With worsening sx -EMG with owzr-yo-duxkgssx R CTS MAY 2018 -EMG with mild [...] OP Psychotherapy, who presents for Depression to tele-. 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 Presented with Hx of trauma in both childhood and adulthood. 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 PLAN: New/Additional Services needed: Off-site services for Behavioral Health Integration Plan: External OP therapy referral Patient Self Plan: Patient to utilize skills provided in intervention , Patient to reach out to [facility] team as needed, and Comply with medication. Tobacco dependence 07/29/2015 Type 2 diabetes mellitus 07/29/2015 Assessment & Plan (02/06/2024 3:18 PM EDT): Significant bump in A1c -restart metformin BID -will check with [facility] pharmacy re: mounjaro availability -encouraged dietary changes and wt loss -encouraged regular FS monitoring and bring glucometer to visits for review -will have f/u with [facility] pharmacist scheduled -Cr/GFR nml with mild urine microalbumin SEP 2023 -s/p optho eval JAN 2023 at [facility] -foot exam next visit* Resolved Problems Problem Noted Date Diagnosed Date Resolved Date Morbid obesity ([facility]/HCC) 07/29/2015 Encounters Date Type Department Care Team Description 10/08/2025 Patient Outreach [facility] MEDICINE [address] [place] [address] Mandi Desir DO Care Coordination (CM/CHW outreach) 10/07/2025 10:45 AM EST Office Visit [facility]INE [address] [place] [phone] Mandi Desir DO Type 2 diabetes mellitus without complication, without long-term current use of insulin ([facility]); Urinary frequency 10/07/2025 Travel 10/06/2025 Travel 10/04/[address] [address] Mandi Desir DO Chart Prep 09/11/[address] [address] Mandi Desir DO Recall Appointment 09/11/2025 Travel 07/26/2025 Refill [facility] MEDICINE [address] [place] [address] Mandi Desir DO 07/25/2025 Patient Outreach [facility] MEDICINE [address] [place] [address] Mandi Desir DO 07/24/2025 Patient Outreach [facility] MEDICINE [address] [place] [address] Mandi Desir DO Care Coordination (CM/CHW outreach) 07/19/2025 Patient Outreach [address] [address] Mandi Desir DO Care Coordination (CM/CHW outreach) 07/17/2025 Patient Outreach [address] [address] Mandi Desir DO Care Coordination (CHW chart review) 07/17/2025 Patient Outreach [address] [address] Mandi Desir DO Care Management (CM- chart review) 07/17/2025 Patient Outreach [address] [address] Mandi Desir DO from Last 3 Months Immunizations Immunization Administration Dates Next Due Hep B, adult [...] (205 lb) 10/07/2025 10:59 AM EST Height 157.5 cm (5' 2 ) 04/02/2025 11:27 AM EDT Body Mass Index 37.49 04/02/2025 11:27 AM EDT Plan of Treatment Health Maintenance Due Date Last Done Comments Diabetes: Foot Exam 1996 Alcohol/Substance Use Screening 1998 Family Planning (PISQ) 2001 HPV Vaccines (1 - 3-dose series) 2001 COVID-19 Vaccine ( season) 2025 09/05/2024, 09/06/2022, 05/18/2022, Additional history exists Influenza Vaccine (#1) 2025 , 07/05/2023, 09/06/2022, Additional history exists Eye Exam 09/28/2025 09/28/2024, 09/16, 09/28/2024, Additional history exists Depression Monitoring 10/02/2025 04/02/2025, 025 Diabetes: Urine Protein Screening 04/02/2026 04/02/2025, 09/29/2023, 09/29/2023, Additional history exists Lipid Panel 04/02/2026 04/02/2025, 04/16, 09/29/2023, Additional history exists SDOH Screening 04/02/2026 04/02/2025 Diabetes: Hemoglobin A1C 04/07/2026 025, 04/02/2025, 11/13/2024, Additional history exists Disability Screening 10/06/2026 10/06/2025 Tobacco Screening 10/07/2026 10/07/2025 DTaP/Tdap/Td Vaccines (3 - Td or Tdap) 08/01/2034 08/01/2024, 07/16/2014 Zoster Vaccines (1 of 2) 2036 RSV Patients and Patients Aged 60 years or older (1 - 1-dose 75+ series) 2061 Hepatitis B Vaccines Completed 07/04/2015, 11/21/2014, 10/15/2014 Pneumococcal Vaccine: Pediatrics (0 to 5 Years) and At-Risk Patients (6 to 49) Years Completed 12/27/2022, 07/16/2014 Cervical Cancer Screening Discontinued HPV/Cotest Discontinued 03/16/2023, 03/10/2018 Pap Smear Discontinued 03/16/2023, 03/16/2023 HIV Screening Completed 09/29/2023, 08/18, 10/08/2020, Additional history exists Hepatitis C Screening Completed 09/29/2023 , 09/06/2022, 10/08/2020, Additional history exists HIB Vaccines Aged Out No longer eligi ble based on patient's age to complete this topic Hepatitis A Vaccines Aged Out No long er eligible based on patient's age to complete this topic IPV Vaccines Aged Out No longer eligi ble based on patient's age to complete this topic Meningococcal B Vaccine Aged Out No l onger eligible based on patient's age to complete [...] 5 11:05 AM EST) No Edward Liu PharmD [...] has chronic kidney disease No Haley Ardon Procedures Procedure Name Priority Date/Time Associated Diagnosis Comments POCT URINALYSIS DIPSTICK Routine 10/07/2025 11:56 AM EST Urinary frequency POCT GLYCATED HEMOGLOBIN, TOTAL Routine 10/07/2025 11:05 AM EST Type 2 diabetes mellitus without complication, without long-term current use of insulin ([facility]) POCT GLUCOSE (CPT-83645) Routine 10/07/2025 11:04 AM EST Type 2 diabetes mellitus without complication, without long-term current use of insulin ([facility]) ALBUMIN, RANDOM URINE W/CREATININE Routine 04/02/2025 9:52 AM EDT LIPID PANEL, STANDARD Routine 04/02/2025 9:52 AM EDT HEPATITIS C AB W/REFL TO [...] Relevant to Health Maintenance Results * POCT Urinalysis (10/07/2025 11:56 AM [...] (15) Nitrite, UA Negative Negative, None Detected [employer] Lot # [id number] Lot# Expiration Date Urine (Urine, Random) 10/07/2025 11:56 AM EST Mandi Desir DO POINT OF CARE TEST ENTER/KATHERINE T ORDERABLES Final Result * (ABNORMAL) POCT Hgb A1c (10/07/2025 11:05 AM EST) Hemoglobin A1C 6.5(A) 4.0 - 5.7 % QC [employer] Lot # [id number] Lot# Expiration Date , Blood 10/07/2025 11:0 5 AM EST Mandi Desir DO POINT OF CARE TEST ENTER/KATHERINE T ORDERABLES Final Result * POCT Glucose (10/07/2025 11:04 AM EST) Glucose Blood, POC 110 60 - 200 mg/dL QC [employer] Lot # [id number] Lot# Expiration Date , Blood Capillary blood specimen / Unknown 10/07/2025 11:04 AM EST Mandi Desir DO POINT OF CARE TEST ENTER/KATHERINE T ORDERABLES Final Result * Albumin, Random Urine W/Creatinine (04/02/2025 9:52 AM EDT) Creatinine, Urine 39.97 mg/dL [facility] Microalbumin Urine <5.0 mg/L [facility] Microalbum Creatinine Ratio Ur TNP <30 ug/mg cr [facility] Comment:Unable to calculate albumin/creatinine ratio due to lowmicroalbumin or creatinine result. 04/02/2025 9:52 AM EDT 04/02/2025 11:32 AM EDT us Mandi Desir DO LAB URINE ORDERABLES Final R esult [facility] [address] [place] [phone] * Lipid Panel, Standard (04/02/2025 9:52 AM EDT) Triglycerides 87 <150 mg/dL [facility] Comment:Desirable Triglyceri de: less than 150 mg/dLBorderline High Triglyceride 150-199 mg/dLHigh Triglyceride: 200-499 mg/dLVery High Triglyceride: greater than or equal to 5OO mg/dL Cholesterol 135 <200 mg/dL [facility] Comment:Desirable Cholestero l: less than 200 mg/dLBorderline High Cholesterol: 200-239 mg/dLHigh Cholesterol: greater than 239 mg/dL LDL Cholesterol Calculated 75 <100 mg/dL [facility] Comment:Desirable LDL: less than 100 mg/dLNear Optimal/Above Optimal LDL: 110- 129 mg/dLBorderline High LDL: 130-159 mg/dLHigh LDL: 160-189 mg/dLVery High LDL: greater than or equal to 190 mg/dL HDL Cholesterol 43 >40 mg/dL [facility] Comment:Desirable HDL: great er than 40 mg/dL Note: This HDL assay may give artificially low results in patients with liver disease. 04/02/2025 9:52 AM EDT 04/02/2025 11:45 AM EDT us Mandi Desir DO LAB BLOOD ORDERABLES Final R esult Performing Organization Address [facility] Co de Phone Number [facility] [address] [place] [phone] * Hepatitis C Antibody with Reflex to HCV, RNA, Quantitative, Real-Time PCR (09/29/2023 9:28 AM EST) Hepatitis C Antibody Nonreactive Nonreactive [facility] Comment:Antibodies to HCV no t detected; does not exclude early acuteHCV infection. 09/29/2023 9:28 AM EST 09/29/2023 11:36 AM EST Mandi Desir LAB BLOOD ORDERABLES Final R esult Performing Organization Address [facility] de Phone Number [facility] [address] [place] [phone] * HIV-1/2 Antigen and Antibodies, Fourth Generation, with Reflexes (09/29/2023 9:28 AM EST) HIV AB/AG Nonreactive Nonreactive [facility] Comment:HIV-1 p24 Ag and/or HIV-1/HIV-2 Ab not detected.A test result that is nonreactive does not exclude thepossibility of exposure to or infection with HIV-1 and/orHIV-2. Nonreactive results in this assay for individualswith prior exposure to HIV-1 and/or HIV-2 may be due toantigen and antibody levels that are below the limit ofdetection of this assay.The Evernote HIV Ag/Ab Combo assay result andsupplemental assay results should be interpreted inconjunction with the patient's clinical presentation,history and other laboratory results. If the results areinconsistent with clinical evidence, additional testing issuggested to confirm the result. Blood Venous blood specimen / Unknown 09/29/2023 9:28 AM EST 09/29/2023 11:36 AM EST Mandi Jurcsak DO LAB BLOOD ORDERABLES Final R esult [facility] [address] [place] [phone] * Thinprep PAP, HPV mRNA E6/E7 RFX HPV 16,18/45, Chlamydia/N. Gonorrhoeae (03/16/2023 9:43 AM EDT) Clinical Information: SCREENING PAP [facility] [place] [employer] LMP: [phone] [facility] [place] [employer] Prev. PAP: YES [employer] Prev. BX: NO [employer] SOURCE: None given [employer] Statement Of Adequacy: [employer] Comment: Satisfactory for evaluation. Endocervical/transformation zone component present. Interpretation/Re sult: Negative for intraepithelial lesion or malignancy. [facility] [place] [employer] Service Coordinator: [employer] Comment: DMM, CT(ASCP) CT screening location: [place] [address] (Always Message) [facility] Comment: EXPLANATORY NOTE: The Pap is a [...] HPV nRNA E6/E7 Not Detected Not Detected [employer] Comment: Methodology: Captain'S Assistant-Mediated Amplification This assay detects E6/E7 viral messenger RNA (mRNA) from 14 high-risk HPV types (16,18,31,33,35,39,45,51,52,56,58,59,66,68). Cervical sources are required for HPV testing. If a vaginal source from a patient who has had a total hysterectomy with removal of cervix was submitted, please contact the testing laboratory for alternative testing options. For additional information, please refer to http://education.[facility]/faq/AQO708o3 (This link if provided for information/ educational purposes only.) Chlamydia trachomatis RNA, TMA, Urogenital NOT DETECTED NOT DETECTED [facility] Neisseria gonorrhoeae RNA, TMA, Urogenital NOT DETECTED NOT DETECTED [facility] Comment [facility] [place] [employer] Comment: The analytical performance characteristics of this assay, when used to test SurePath(TM) specimens have been determined by [facility]. The modifications have not been cleared or approved by the FDA. This assay has been validated pursuant to the CLIA regulations and is used for clinical purposes. For additional information, please refer to https://education.[facility]/faq/QJW809 (This link is being provided for information/ educational purposes only.) Pap Vial 03/16/2023 9:43 AM EDT 03/17/2023 9:45 PM EDT Mandi Desir DO LAB PATHOLOGY ORDERABLES Fin al Result [facility] [address], [place] [address] [facility] [place] [facility] [address] [place] [phone] from Last 3 Months or Most Recently Relevant to Health Maintenance Additional Health Concerns Active Problems Noted Date [...] 10/08/2025 Patient has chronic kidney disease 10/08/[address] [place] [address] [place] [address] C3 Care Teams Collar Worker Relationship Specialty Start Date End Date Mandi Desir DO [address] [place] [address] PCP - General Family Medicine 05/03/14 Jennyfer Nova RN [address] [place] [phone] Registered Nurse Family Medicine 07/17/25 Haley Ardon 07/17/25
--- OUTSIDE RECORDS SUMMARY | 2025-10-08 12:50 | XMS_ITS | Encounter Summary ---
Author Organization [employer] Address [address] [facility] 7t [place] [address] Care Team Providers Care Steel Melter Name Role Phone Mandi Desir DO Primary Care Provider Maryse Hi PharmD Unavailable [phone] Jennyfer Nova RN Unavailable [phone] Haley Ardon Unavailable Reason for Visit * Reason Onset Date Comments PT-1 10/24/2024 Encounter Details Date Type Department Care Team (Late st Contact Info) Description 10/24/2024 Telephone [facility] MEDICINE [address] [place], [place] [phone] Mandi Desir DO [address] [place], [place] [phone] PT-1 Social History Tobacco Use Types Packs/Day [...] Miscellaneous Notes * Telephone Encounter - Tom Tom - 10/24/2024 3:34 PM EST Patient calling requesting PT1 Home Address verified: Y/N: Yes Provider name or facility name: [facility] Escort needed: Y/N: No Do you have a wheelchair: Y/N: No If yes- Manual or electric: N/A Visits: (amount of visits) ( x monthly, weekly, daily) 1 time Pt is requesting to be picked up at home and dropped off and brought back home after surgery. Pt is also requesting the name of the transportation company for her records. [phone] documented in this encounter Plan of Treatment Not on file documented as of this encounter Goals Goal Patient Goal Type Associated Problems Recent Progress Patient-Stated? Author Patient will adhere to medication regimen General No Maryse Hi PharmD Hemoglobin A1c < 7 Result Component 6.5( 11:05 AM EST) No Dellogono, Edward, PharmD Record your blood sugar as directed Result Component No Maryse Hi PharmD documented as of this encounter Visit Diagnoses Not on filedocumented in this encounter Additional Health Concerns Assessment Noted Time PHQ-9 Depression Total Score: 0 01/31/20 24 9:08 AM EDT documented as of this encounter Care Teams Steel Melter Relationship Specialty Start Date End Date Mandi Desir DO [address] [place] [address] PCP - General Family Medicine 05/03/14 Maryse Hi, PharmD [address] [place] [address] Pharmacist Internal Medicine 06/06/23 11/12/24 Jennyfer Nova RN [address] [place] [phone] Registered Nurse Family Medicine 07/17/25 Haley Ardon 07/17/25 documented as of this encounter
--- OUTSIDE RECORDS SUMMARY | 2025-10-08 12:51 | XMS_ITS ---
Author Organization [employer] Address [address] [place] [address] [address] [place] [address] Care Team Providers Care Civil Manager Name Role Phone Mandi Desir DO Primary Care Provider Jennyfer Nova RN Unavailable [phone] Haley Ardon Unavailable CM Complex Status:Outreach In Progress (Enrolling) Start date:07/17/2025 Enrollment reason:ADT Feed Overview ED- Pt went to [facility] ED on 07/16/25. Case Team Name Relationship Phone Jennyfer Nova RN(Responsible Staff) Registered Nurse [phone] Continued Care and Services Coordination
--- OUTSIDE RECORDS SUMMARY | 2025-10-08 12:51 | XMS_ITS | Encounter Summary ---
Author Organization [employer] Address [address] [place] [address] 7[address] [place] [address] Care Team Providers Care Strategic Sourcing Consultant Name Role Phone Mandi Desir DO Primary Care Provider DelEdward garcia PharmD Unavailable Unavail able Maryse Hi PharmD Unavailable Jennyfer Nova RN Unavailable [phone] Haley Ardon Unavailable Reason for Visit * Reason Onset Date Comments PA 01/11/2023 Encounter Details Date Type Department Care Team (Late st Contact Info) Description 01/11/[address] [facility] MEDICINE [address] [place], [place] [phone] Mandi Desir DO [address] [place], [place] [phone] PA Social History Tobacco Use Types Packs/Day [...] a PA from Provider Please sent to [facility]/pharmacy #[id number] - [place], [place] - [address] [place] [address] documented in this encounter Plan of Treatment Not on file documented as of this encounter Goals Goal Patient Goal Type Associated Problems Recent Progress Patient-Stated? Author Hemoglobin A1c < 7 Result Component 6.5(10/07/2025 11:05 AM EST) No Edward Liu, PharmChela documented as of this encounter Visit Diagnoses Not on filedocumented in this encounter Additional Health Concerns Assessment Noted Time PHQ-9 Depression Total Score: 0 12/01/19 9:35 AM EST documented as of this encounter Care Teams Strategic Sourcing Consultant Relationship Specialty Start Date End Date Mandi Desir DO [address] [place] [phone] PCP - General Family Medicine 05/03/14 Edward Liu, PharmD [address] [place] [phone] Pharmacist Internal Medicine 11/22/22 06/05/23 Maryse Hi PharmD [address] [place] [phone] Pharmacist Internal Medicine 06/06/23 11/12/24 Jennyfer Nova RN [address] [place] [phone] Registered Nurse Family Medicine 07/17/25 Haley Ardon 07/17/25 documented as of this encounter
== END 2025-10-07 11:25 | disposition home or self-care (01) ==
LOC: HO.HHCLNP 11:24
PROVIDERS: Visit Provider Family Medicine
DX: R35.0 Frequency of micturition (principal)
CPT/HCPCS: 87086; 87088; 87186